=== PATIENT | male | born 1935 | race Hispanic/Latino ===

== ENCOUNTER → 2017-04-26 | Outpatient (CLI) | payer OTHER ==
[~2017-04-26] MED LIST: AMOX500C2 PO; CALC0.253 PO; CHOL100040 PO; CIPR250T6 PO; DOXA4TAB3 PO; DOXA8TAB81 PO; ENOX80DI8 SQ; FERR325T22 PO; FURO40TA5 PO; IRON150C5 PO; LEVO50 PO; LINA145C PO; LISI-613 PO; NIFE30TA10 PO; NIFE90TA45 PO; ONDA4TAB10 PO; PANT40TA25 PO; POTA-9 PO; RENA VITE PO; SILV50CR31 TP; SIMV20TA6 PO; SPIR25TA PO; WARF-57 PO; WARF10TA45 PO
[2017-04-26 10:15] LABS: BASOPHILS % (AUTO) 1.8 % (0.0-5.0); EOSINOPHILS % (AUTO) 2.2 % (0.0-8.0); HEMATOCRIT 39.1 % (42-54); LYMPHOCYTES % (AUTO) 17.9 % (21.0-51.0); MEAN CORPUSCULAR HEMOGLOBIN 30.9 pg (27.0-33.0); MEAN CORPUSCULAR HGB CONC 33.4 g/dL (32.0-36.0); MEAN CORPUSCULAR VOLUME 92.5 fL (79-99); MONOCYTES % (AUTO) 10.4 % (3.0-13.0); NEUTROPHILS % (AUTO) 67.7 % (40.0-77.0); NUCLEATED RED BLOOD CELLS 0.1 % (0.0-0.19); PLATELET COUNT (AUTO) 156 K/uL (130-400); RED BLOOD CELL COUNT(AUTO) 4.23 MIL/uL (4.50-6.20); RED CELL DISTRIBUTION WIDTH 14.8 % (11.0-15.5); WHITE BLOOD COUNT (AUTO) 4.6 K/uL (4.8-10.8)
[2017-04-26 10:27] LABS: INR 1.1 (0.85-1.15); PROTHROMBIN TIME 11.5 SEC (9.6-11.6)
[2017-04-26 10:29] LABS: ALBUMIN 2.6 g/dL (3.5-5.0); BILIRUBIN,TOTAL 1.6 mg/dL (0.2-1.0); CREATININE 1.4 mg/dL (0.5-1.5); POTASSIUM 4.5 mmol/L (3.5-5.1); TOTAL PROTEIN, SERUM 5.4 g/dL (6.0-8.3)
== END ==
LOC: RAH 09:17
PROVIDERS: ATTEND Internal Medicine Gastroenterology
DX: R18.8 Other ascites (principal)
CPT/HCPCS: 36415; 76705; 80053; 85025; 85610

== ENCOUNTER → 2017-05-25 | Outpatient (CLI) | payer OTHER ==
[2017-05-25 09:21] LABS: INR 2.13 (0.85-1.15)
== END | disposition home or self-care (01) ==
LOC: RAH 08:17
PROVIDERS: ATTEND Internal Medicine Gastroenterology
DX: K74.60 Unspecified cirrhosis of liver (principal); R18.8 Other ascites
CPT/HCPCS: 36415; 76700; 82105; 85610

== ENCOUNTER 2017-05-31 23:53 | Observation (INO) | payer OTHER ==
[~2017-05-31] VITALS: Ht 182.9 cm; Wt 89.3 kg
[~2017-05-31 23:53] MED LIST changes: -AMOX500C2 PO; -CIPR250T6 PO; -DOXA8TAB81 PO; -ENOX80DI8 SQ; -IRON150C5 PO; -LEVO50 PO; -LISI-613 PO; -ONDA4TAB10 PO; -SILV50CR31 TP; -SPIR25TA PO; -WARF10TA45 PO
[2017-06-01] MEDS ORDERED: ASPIRIN 325 MG TABLET ONE (00:13)
[2017-06-01 00:17] LABS: BASOPHILS % (AUTO) 1.1 % (0.0-5.0); HEMATOCRIT 35.6 % (42-54); LYMPHOCYTES % (AUTO) 10.3 % (21.0-51.0); MEAN CORPUSCULAR HEMOGLOBIN 30.3 pg (27.0-33.0); MEAN CORPUSCULAR HGB CONC 33.8 g/dL (32.0-36.0); MEAN CORPUSCULAR VOLUME 89.6 fL (79-99); MONOCYTES % (AUTO) 11.3 % (3.0-13.0); NEUTROPHILS % (AUTO) 74.3 % (40.0-77.0); PLATELET COUNT (AUTO) 211 K/uL (130-400); RED BLOOD CELL COUNT(AUTO) 3.98 MIL/uL (4.50-6.20); RED CELL DISTRIBUTION WIDTH 14.1 % (11.0-15.5); WHITE BLOOD COUNT (AUTO) 6.1 K/uL (4.8-10.8)
[2017-06-01 00:21] LABS: INR 2.08 (0.85-1.15); PARTIAL THROMBOPLASTIN TIME 38.4 SEC (26.3-35.5); PROTHROMBIN TIME 21.5 SEC (9.6-11.6)
[2017-06-01 01:16] LABS: CREATINE KINASE MB 2.1 ng/mL (0.5-3.6)
[2017-06-01 01:18] LABS: BILIRUBIN,TOTAL 0.6 mg/dL (0.2-1.0); CREATININE 1.4 mg/dL (0.5-1.5); POTASSIUM 4.5 mmol/L (3.5-5.1)
[2017-06-01 01:19] LABS: ALBUMIN 2.1 g/dL (3.5-5.0); TOTAL PROTEIN, SERUM 5.5 g/dL (6.0-8.3)
[2017-06-01] MEDS ORDERED: FUROSEMIDE 10 MG/ML 2ML VIAL ONE (01:23)
[2017-06-01] MEDS ORDERED: LEVOFLOXACIN 500 MG/D5W 100 ML 100 ML ONE (02:45)
[2017-06-01] MEDS ORDERED: NITROGLYCERIN 1GM/1 INCH PACKET TD ONE ×2 (02:45→10:50)
[2017-06-01] MEDS ORDERED: ENOXAPARIN SODIUM 30 MG/0.3 ML SQ ONE (06:23)
[2017-06-01] MEDS ORDERED: FUROSEMIDE 10 MG/ML 4ML VIAL ONE (13:57)
[2017-06-01 14:51] VITALS: BP 132/64
[2017-06-01] MEDS: NITROGLYCERIN 1GM/1 INCH PACKET TD SCH ×2 (15:00→23:00)
[2017-06-01] MEDS: FUROSEMIDE 10 MG/ML 4ML VIAL IVP SCH (15:00)
[2017-06-01] MEDS ORDERED: AMOX500C2 PO (15:01)
[2017-06-01] MEDS ORDERED: LEVO50 PO (15:01)
[2017-06-01] MEDS ORDERED: WARF10TA45 PO (15:01)
[2017-06-01] MEDS ORDERED: NIFE90TA45 PO (15:01)
[2017-06-01] MEDS ORDERED: SPIR25TA PO (15:01)
[2017-06-01] MEDS ORDERED: LISI-613 PO (15:01)
[2017-06-01] MEDS ORDERED: WARF-57 PO (15:01)
[2017-06-01] MEDS ORDERED: SILV50CR31 TP (15:01)
[2017-06-01 16:17] LABS: CREATINE KINASE MB 2.2 ng/mL (0.5-3.6); CREATINE KINASE, TOTAL 62 U/L (21-232); MYOGLOBIN 136 ng/mL (10-92); TROPONIN I < 0.04 ng/mL (0.00-0.06)
[2017-06-01 16:21] VITALS: BP 131/67
[2017-06-01 19:40] VITALS: BP 136/68
[2017-06-01 22:05] LABS: CREATINE KINASE MB 2.9 ng/mL (0.5-3.6); CREATINE KINASE, TOTAL 63 U/L (21-232); MYOGLOBIN 148 ng/mL (10-92); TROPONIN I < 0.04 ng/mL (0.00-0.06)
[2017-06-01 23:28] VITALS: BP 130/72
[2017-06-02 03:49] VITALS: BP 124/64
[2017-06-02 04:48] LABS: HEMATOCRIT 34.2 % (42-54); MEAN CORPUSCULAR HEMOGLOBIN 30.9 pg (27.0-33.0); MEAN CORPUSCULAR HGB CONC 34.7 g/dL (32.0-36.0); MEAN CORPUSCULAR VOLUME 89.1 fL (79-99); NUCLEATED RED BLOOD CELLS 0.1 % (0.0-0.19); PLATELET COUNT (AUTO) 203 K/uL (130-400); RED BLOOD CELL COUNT(AUTO) 3.84 MIL/uL (4.50-6.20); RED CELL DISTRIBUTION WIDTH 14.3 % (11.0-15.5); WHITE BLOOD COUNT (AUTO) 5.5 K/uL (4.8-10.8)
[2017-06-02 05:00] LABS: CREATININE 1.6 mg/dL (0.5-1.5); POTASSIUM 4.7 mmol/L (3.5-5.1)
[2017-06-02 05:11] LABS: B-TYPE NATRIURETIC PEPTIDE 2340 pg/mL (0-100)
[2017-06-02] MEDS: FUROSEMIDE 10 MG/ML 4ML VIAL IVP SCH (05:35)
[2017-06-02] MEDS: NITROGLYCERIN 1GM/1 INCH PACKET TD SCH (06:34)
[2017-06-02 07:42] VITALS: BP 129/66
[2017-06-02] MEDS ORDERED: ASPIRIN 325 MG TABLET PO SCH (09:00)
[2017-06-02] MEDS ORDERED: ENOXAPARIN SODIUM 30 MG/0.3 ML SQ SCH (09:00)
[2017-06-02 11:30] VITALS: BP 126/56
[2017-06-02] MEDS ORDERED: LEVOFLOXACIN 500 MG/D5W 100 ML 100 ML IV SCH (21:00)
[2017-06-03] MEDS ORDERED: LEVOTHYROXINE 50 MCG TABLET PO SCH (07:30)
[2017-06-03] MEDS ORDERED: FUROSEMIDE 40 MG TABLET PO SCH (09:00)
[2017-06-03] MEDS ORDERED: SPIRONOLACTONE 25 MG TAB PO SCH (09:00)
[2017-06-03] MEDS ORDERED: LINZESS 145 MCG PO SCH (09:00)
[2017-06-03] MEDS ORDERED: FOLIC ACID/VITAMIN B COMP W-C 1 MG CAPSULE PO SCH (09:00)
[2017-06-03] MEDS ORDERED: DOXAZOSIN MESYLATE 2 MG TABLET PO SCH (09:00)
[2017-06-03] MEDS ORDERED: LISINOPRIL 20 MG TABLET PO SCH (09:00)
[2017-06-03] MEDS ORDERED: NIFEDIPINE ER 30 MG TAB PO SCH (09:00)
[2017-06-03] MEDS ORDERED: PANTOPRAZOLE SODIUM 40 MG TABLET.DR PO SCH (09:00)
== END 2017-06-02 14:20 | disposition home or self-care (01) ==
LOC: EDH 23:53 → EDHIP 06-01 02:00 → 2DH 06-01 14:31
PROVIDERS: ADMIT Family Medicine; ATTEND Family Medicine
DX: R07.89 Other chest pain (principal); I48.2 Chronic atrial fibrillation; D68.69 Other thrombophilia; R91.8 Other nonspecific abnormal finding of lung field; K74.60 Unspecified cirrhosis of liver; I25.10 Atherosclerotic heart disease of native coronary artery without angina pectoris; E11.9 Type 2 diabetes mellitus without complications; J18.9 Pneumonia, unspecified organism; I11.0 Hypertensive heart disease with heart failure; I50.9 Heart failure, unspecified; J44.0 Chronic obstructive pulmonary disease with (acute) lower respiratory infection; Z82.49 Family history of ischemic heart disease and other diseases of the circulatory system; Z95.1 Presence of aortocoronary bypass graft; Z90.49 Acquired absence of other specified parts of digestive tract; Z77.090 Contact with and (suspected) exposure to asbestos; Z79.01 Long term (current) use of anticoagulants
CPT/HCPCS: 36415 ×2; 71045; 71250; 78580; 80048; 80053; 82550 ×3; 82553 ×3; 83874 ×3; 83880 ×2; 84484 ×5; 85025; 85027; 85378; 85610; 85730; 93005 ×2; 96374; 99285; A9540 ×2; G0378 ×36; J1650; J1940 ×3; J1956

== ENCOUNTER 2017-06-04 19:34 | Emergency (ER) | payer OTHER ==
[~2017-06-04 19:34] MED LIST changes: +LEVO50 PO; +LISI-613 PO; +SILV50CR31 TP; +SPIR25TA PO; +WARF10TA45 PO
== END 2017-06-04 21:10 | disposition home or self-care (01) ==
LOC: EDH 19:34
DX: Z46.6 Encounter for fitting and adjustment of urinary device (principal)
CPT/HCPCS: 99281

== ENCOUNTER 2017-06-05 23:15 | Observation (INO) | payer OTHER ==
[~2017-06-05] VITALS: Ht 185.4 cm; Wt 92.9 kg
[2017-06-06 00:17] LABS: BASOPHILS % (AUTO) 0.9 % (0.0-5.0); EOSINOPHILS % (AUTO) 1.8 % (0.0-8.0); HEMATOCRIT 32.7 % (42-54); MEAN CORPUSCULAR HEMOGLOBIN 30.8 pg (27.0-33.0); MEAN CORPUSCULAR HGB CONC 34.8 g/dL (32.0-36.0); MEAN CORPUSCULAR VOLUME 88.4 fL (79-99); MONOCYTES % (AUTO) 10.1 % (3.0-13.0); NEUTROPHILS % (AUTO) 80.2 % (40.0-77.0); PLATELET COUNT (AUTO) 200 K/uL (130-400); RED CELL DISTRIBUTION WIDTH 14.1 % (11.0-15.5); WHITE BLOOD COUNT (AUTO) 7.6 K/uL (4.8-10.8)
[2017-06-06 00:27] LABS: CARBON DIOXIDE 26 mmol/L (21-32); CHLORIDE 95 mmol/L (101-111); CREATININE 1.5 mg/dL (0.5-1.5); GLOMERULAR FILTR. RATE CALC 48 mL/min (>60); GLUCOSE,RANDOM 117 mg/dL (70-105); POTASSIUM 4.1 mmol/L (3.5-5.1); SODIUM SERUM 129 mmol/L (136-145); UREA NITROGEN, BLOOD 34 mg/dL (7-18)
[2017-06-06 00:31] LABS: PARTIAL THROMBOPLASTIN TIME 45.3 SEC (26.3-35.5)
[2017-06-06 00:34] LABS: INR 5.11 (0.85-1.15)
[2017-06-06 00:42] LABS: ALANINE AMINOTRANSFERASE 16 U/L (12-78); ALBUMIN 2.1 g/dL (3.5-5.0); AMMONIA 11 umol/L (11-32); ASPARTATE AMINOTRANSFERASE 17 U/L (10-37); BILIRUBIN,TOTAL 0.6 mg/dL (0.2-1.0); CREATINE KINASE MB 2.6 ng/mL (0.5-3.6); CREATINE KINASE, TOTAL 33 U/L (21-232); MYOGLOBIN 79 ng/mL (10-92); TOTAL PROTEIN, SERUM 5.3 g/dL (6.0-8.3); TROPONIN I < 0.04 ng/mL (0.00-0.06)
[2017-06-06 00:52] LABS: APPEARANCE,URINE Clear (CLEAR); BILIRUBIN,URINE Negative (NEGATIVE); COLOR,URINE Yellow (YELLOW); GLUCOSE, URINE (UA) Negative (NEGATIVE); KETONES,URINE Negative (NEGATIVE); LEUKOCYTE ESTERASE ,URINE Moderate (NEGATIVE); NITRATE,URINE Negative (NEGATIVE); OCCULT BLOOD,URINE Large (NEGATIVE); PROTEIN,URINE Negative (NEGATIVE)
[2017-06-06 01:05] LABS: BACTERIA,URINE Few /HPF (None Seen); MUCUS,URINE Few LPF (None Seen); RBC,URINE 26-50 /HPF (0-1); SQUAMOUS EPITHELIAL CELL,UR Rare /LPF (0-2)
[2017-06-06] MEDS ORDERED: CEFTRIAXONE SODIUM 2 GM VIAL ONE (01:21)
[2017-06-06] MEDS ORDERED: SODIUM CHLORIDE 0.9% 50 ML IV ONE (01:23)
[2017-06-06] MEDS ORDERED: SODIUM CHLORIDE 0.9% 1000ML 1,000 ML IV SCH (04:06)
[2017-06-06] MEDS ORDERED: HYDRALAZINE HCL 20 MG/ML VIAL IV PRN (04:15)
[2017-06-06] MEDS ORDERED: POTASSIUM CHLORIDE 20 MEQ ERTAB PO PRN (04:15)
[2017-06-06] MEDS ORDERED: IPRATROPIUM/ALBUTEROL SULFATE 3 ML SOLUTION IH PRN (04:15)
[2017-06-06] MEDS: LEVOFLOXACIN 500 MG/D5W 100 ML 100 ML IV SCH (04:15)
[2017-06-06] MEDS ORDERED: DEXTROSE 50%-WATER 50 ML DISP.SYRIN IV PRN (04:15)
[2017-06-06] MEDS ORDERED: POTASSIUM CHLORIDE 20MEQ/100ML 100 ML IV PRN (04:15)
[2017-06-06] MEDS ORDERED: LACTULOSE 20 GM/30 ML UDCUP PO PRN (04:15)
[2017-06-06] MEDS ORDERED: POTASSIUM CHLORIDE 10% ELIXIR 20 MEQ/15 ML UDCUP PO PRN (04:15)
[2017-06-06] MEDS ORDERED: LIDOCAINE HCL-MPF 1% 2ML VIAL IVP PRN (04:15)
[2017-06-06] MEDS ORDERED: ONDANSETRON HCL 4 MG/2 ML VIAL IVP PRN (04:15)
[2017-06-06] MEDS ORDERED: GLUCAGON 1MG KIT 1 MG ML IM PRN (04:15)
[2017-06-06] MEDS ORDERED: SODIUM CHLORIDE 0.9% 1000ML 1,000 ML IV ONE (04:25)
[2017-06-06] MEDS ORDERED: LEVOFLOXACIN 500 MG/D5W 100 ML 100 ML ONE (04:26)
[2017-06-06 04:55] LABS: HEMATOCRIT 32.5 % (42-54); MEAN CORPUSCULAR HEMOGLOBIN 31.2 pg (27.0-33.0); MEAN CORPUSCULAR HGB CONC 35.2 g/dL (32.0-36.0); MEAN CORPUSCULAR VOLUME 88.6 fL (79-99); PLATELET COUNT (AUTO) 184 K/uL (130-400); RED BLOOD CELL COUNT(AUTO) 3.67 MIL/uL (4.50-6.20); RED CELL DISTRIBUTION WIDTH 14.2 % (11.0-15.5)
[2017-06-06 05:08] LABS: CREATININE 1.4 mg/dL (0.5-1.5); POTASSIUM 3.9 mmol/L (3.5-5.1)
[2017-06-06 08:04] LABS: PARTIAL THROMBOPLASTIN TIME 46.5 SEC (26.3-35.5)
[2017-06-06 08:17] LABS: PROTHROMBIN TIME 52.4 SEC (9.6-11.6)
[2017-06-06 08:18] LABS: INR 5.15 (0.85-1.15)
[2017-06-06] MEDS ORDERED: FAMOTIDINE/PF 20 MG/2 ML VIAL IV ONE (10:14)
[2017-06-06 16:00] VITALS: BP 123/67
[2017-06-06 20:00] VITALS: BP 121/56
[2017-06-06] MEDS: FAMOTIDINE 20MG TAB 20 MG TAB PO SCH (20:04)
[2017-06-06] MEDS: INSULIN HUMULIN R 100 UNIT/ML 3ML SQ SCH (21:00)
[2017-06-06] MEDS ORDERED: NIFEDIPINE 90 MG PO SCH (21:00)
[2017-06-07 00:12] VITALS: BP 137/68
[2017-06-07] MEDS: LEVOFLOXACIN 500 MG/D5W 100 ML 100 ML IV SCH (04:12)
[2017-06-07 04:20] VITALS: BP 135/57
[2017-06-07] MEDS: ACETAMINOPHEN 325 MG TAB PO PRN ×2 (04:21→12:19)
[2017-06-07 05:58] LABS: INR 4.08 (0.85-1.15); PROTHROMBIN TIME 41.7 SEC (9.6-11.6)
[2017-06-07] MEDS: INSULIN HUMULIN R 100 UNIT/ML 3ML SQ SCH ×4 (06:32→21:00)
[2017-06-07] MEDS: LEVOTHYROXINE 50 MCG TABLET PO SCH (06:34)
[2017-06-07 08:00] VITALS: BP 137/57
[2017-06-07] MEDS: Cholecalciferol (Vitamin D3) 1,000 UNIT PO SCH (09:00)
[2017-06-07] MEDS ORDERED: NIFEDIPINE ER 30 MG TAB PO SCH (09:00)
[2017-06-07] MEDS: Linaclotide (Linzess) 145 MCG PO SCH (09:00)
[2017-06-07] MEDS: FUROSEMIDE 40 MG TABLET PO SCH (10:31)
[2017-06-07] MEDS: PANTOPRAZOLE SODIUM 40 MG TABLET.DR PO SCH (10:33)
[2017-06-07] MEDS: FERROUS SULFATE 325 MG TABLET.DR PO SCH ×3 (10:33→21:54)
[2017-06-07] MEDS: SPIRONOLACTONE 25 MG TAB PO SCH (10:34)
[2017-06-07] MEDS: DOXAZOSIN MESYLATE 2 MG TABLET PO SCH (10:34)
[2017-06-07] MEDS: NIFEDIPINE ER 30 MG TAB PO SCH (10:34)
[2017-06-07] MEDS: FOLIC ACID/VITAMIN B COMP W-C 1 MG CAPSULE PO SCH (10:37)
[2017-06-07] MEDS: FAMOTIDINE 20MG TAB 20 MG TAB PO SCH ×2 (10:37→21:54)
[2017-06-07] MEDS: LISINOPRIL 20 MG TABLET PO SCH (10:37)
[2017-06-07 12:00] VITALS: BP 147/87
[2017-06-07 16:00] VITALS: BP 129/58
[2017-06-07] MEDS ORDERED: MAG HYDROX/AL HYDROX/SIMETH ES 30 ML SUSP UDCUP PO PRN (18:00)
[2017-06-07 19:25] VITALS: BP 116/50
[2017-06-08 00:15] VITALS: BP 116/50
[2017-06-08 03:05] VITALS: BP 129/62
[2017-06-08] MEDS: LEVOFLOXACIN 500 MG/D5W 100 ML 100 ML IV SCH (03:59)
[2017-06-08] MEDS: INSULIN HUMULIN R 100 UNIT/ML 3ML SQ SCH ×3 (06:04→16:30)
[2017-06-08] MEDS: LEVOTHYROXINE 50 MCG TABLET PO SCH (06:51)
[2017-06-08 08:00] VITALS: BP 130/56
[2017-06-08] MEDS: SPIRONOLACTONE 25 MG TAB PO SCH (08:47)
[2017-06-08] MEDS: FAMOTIDINE 20MG TAB 20 MG TAB PO SCH (08:48)
[2017-06-08] MEDS: DOXAZOSIN MESYLATE 2 MG TABLET PO SCH (08:48)
[2017-06-08] MEDS: FOLIC ACID/VITAMIN B COMP W-C 1 MG CAPSULE PO SCH (08:48)
[2017-06-08] MEDS: FUROSEMIDE 40 MG TABLET PO SCH (08:48)
[2017-06-08] MEDS: Cholecalciferol (Vitamin D3) 1,000 UNIT PO SCH (08:49)
[2017-06-08] MEDS: NIFEDIPINE ER 30 MG TAB PO SCH (08:49)
[2017-06-08] MEDS: FERROUS SULFATE 325 MG TABLET.DR PO SCH ×2 (08:49→14:21)
[2017-06-08] MEDS: PANTOPRAZOLE SODIUM 40 MG TABLET.DR PO SCH (08:49)
[2017-06-08] MEDS: LISINOPRIL 20 MG TABLET PO SCH (08:49)
[2017-06-08] MEDS: Linaclotide (Linzess) 145 MCG PO SCH (08:50)
[2017-06-08] MEDS ORDERED: CIPR250T6 PO (11:20)
[2017-06-08 12:00] VITALS: BP 111/54
== END 2017-06-08 18:46 | disposition home or self-care (01) ==
LOC: EDH 23:15 → EDHIP 06-06 03:03 → 3AH 06-06 17:56
PROVIDERS: ADMIT Family Medicine; ATTEND Family Medicine
DX: R41.82 Altered mental status, unspecified (principal); N39.0 Urinary tract infection, site not specified; E86.0 Dehydration; E11.9 Type 2 diabetes mellitus without complications; E78.5 Hyperlipidemia, unspecified; E87.1 Hypo-osmolality and hyponatremia; I11.0 Hypertensive heart disease with heart failure; I50.9 Heart failure, unspecified; I25.10 Atherosclerotic heart disease of native coronary artery without angina pectoris; R79.1 Abnormal coagulation profile; F03.90 Unspecified dementia, unspecified severity, without behavioral disturbance, psychotic disturbance, mood disturbance, and anxiety; I48.2 Chronic atrial fibrillation; J11.00 Influenza due to unidentified influenza virus with unspecified type of pneumonia; N40.1 Benign prostatic hyperplasia with lower urinary tract symptoms; K74.60 Unspecified cirrhosis of liver; Z79.01 Long term (current) use of anticoagulants; Z95.1 Presence of aortocoronary bypass graft
CPT/HCPCS: 36415 ×3; 70450; 71045; 74176; 80048; 80053; 81001; 82140; 82550; 82553; 82948 ×8; 83605; 83874; 84484; 85025; 85027; 85610 ×3; 85730 ×2; 87040 ×2; 87088; 87804 ×2; 93005; 94664; 96365; 96366; 96375; 99285; A4344; G0378 ×64; J0696; J1956 ×3; J3490; J7030

== ENCOUNTER 2017-06-15 10:40 | Inpatient (IN) | payer OTHER ==
[~2017-06-15] VITALS: Ht 182.9 cm; Wt 99.9 kg
[~2017-06-15 10:40] MED LIST changes: +CIPR250T6 PO; -WARF-57 PO; -WARF10TA45 PO
[2017-06-15 12:05] LABS: BASOPHILS % (AUTO) 0.5 % (0.0-5.0); HEMATOCRIT 34.9 % (42-54); LYMPHOCYTES % (AUTO) 5.1 % (21.0-51.0); MEAN CORPUSCULAR VOLUME 88.5 fL (79-99); MONOCYTES % (AUTO) 10.5 % (3.0-13.0); NEUTROPHILS % (AUTO) 82.9 % (40.0-77.0); PLATELET COUNT (AUTO) 216 K/uL (130-400); RED BLOOD CELL COUNT(AUTO) 3.95 MIL/uL (4.50-6.20); RED CELL DISTRIBUTION WIDTH 14.7 % (11.0-15.5); WHITE BLOOD COUNT (AUTO) 10.1 K/uL (4.8-10.8)
[2017-06-15 12:18] LABS: INR 1.07 (0.85-1.15); PARTIAL THROMBOPLASTIN TIME 30.6 SEC (26.3-35.5); PROTHROMBIN TIME 11.2 SEC (9.6-11.6)
[2017-06-15 12:30] LABS: ALBUMIN 1.9 g/dL (3.5-5.0); CREATINE KINASE MB 2.8 ng/mL (0.5-3.6); CREATININE 1.9 mg/dL (0.5-1.5); POTASSIUM 5.3 mmol/L (3.5-5.1); TOTAL PROTEIN, SERUM 5.5 g/dL (6.0-8.3)
[2017-06-15] MEDS ORDERED: LACTATED RINGERS 1000ML 1,000 ML IV ONE (14:05)
[2017-06-15] MEDS ORDERED: SODIUM CHLORIDE 0.9% 1000ML 1,000 ML IV ONE ×2 (14:05→15:39)
[2017-06-15 15:52] LABS: APPEARANCE,URINE Cloudy (CLEAR); BILIRUBIN,URINE Negative (NEGATIVE); COLOR,URINE Orange (YELLOW); GLUCOSE, URINE (UA) Negative (NEGATIVE); KETONES,URINE Negative (NEGATIVE); LEUKOCYTE ESTERASE ,URINE Moderate (NEGATIVE); NITRATE,URINE Negative (NEGATIVE); OCCULT BLOOD,URINE Large (NEGATIVE); PROTEIN,URINE POS 1+ (NEGATIVE)
[2017-06-15 15:59] LABS: AMPHET/METH SCREEN,URINE NEGATIVE (NEGATIVE); BARBITURATE SCREEN, URINE NEGATIVE (NEGATIVE); BENZODIAZEPINES SCREEN,URINE NEGATIVE (NEGATIVE); CANNABINOID SCREEN,URINE NEGATIVE (NEGATIVE); COCAINE SCREEN,URINE NEGATIVE (NEGATIVE); OPIATE SCREEN,URINE NEGATIVE (NEGATIVE); PHENCYCLIDINE SCREEN,URINE NEGATIVE (NEGATIVE)
[2017-06-15 16:45] LABS: RBC,URINE 51-100 /HPF (0-1)
[2017-06-15 16:46] LABS: AMORPHOUS SEDIMENT,UR Few /LPF (None Seen); BACTERIA,URINE Few /HPF (None Seen); SQUAMOUS EPITHELIAL CELL,UR None Seen /HPF (0-2)
[2017-06-15 18:12] VITALS: BP 117/50
[2017-06-15] MEDS ORDERED: SODIUM CHLORIDE 0.9% 1000ML 1,000 ML IV SCH (19:00)
[2017-06-15] MEDS ORDERED: ACETAMINOPHEN 325 MG TAB PO PRN (19:00)
[2017-06-15] MEDS ORDERED: GLUCAGON 1MG KIT 1 MG ML IM PRN (19:00)
[2017-06-15] MEDS ORDERED: DEXTROSE 50%-WATER 50 ML DISP.SYRIN IV PRN (19:00)
[2017-06-15 19:40] VITALS: BP 105/49
[2017-06-15] MEDS ORDERED: CEFTRIAXONE 1GM/D5W 50ML 50 ML IV SCH (20:00)
[2017-06-15] MEDS: CEFTRIAXONE SODIUM 1 GM IVP SCH (20:14)
[2017-06-15] MEDS: INSULIN HUMULIN R 100 UNIT/ML 3ML SQ SCH (21:00)
[2017-06-15 23:22] VITALS: BP 111/51
[2017-06-16] MEDS ORDERED: ONDA4TAB10 PO (00:19)
[2017-06-16] MEDS ORDERED: WARF-57 PO (00:19)
[2017-06-16] MEDS ORDERED: DOXA8TAB81 PO (00:19)
[2017-06-16 03:40] VITALS: BP 114/53
[2017-06-16 06:01] LABS: HEMATOCRIT 30.1 % (42-54); MEAN CORPUSCULAR HGB CONC 36.1 g/dL (32.0-36.0); MEAN CORPUSCULAR VOLUME 88.7 fL (79-99); PLATELET COUNT (AUTO) 190 K/uL (130-400); RED BLOOD CELL COUNT(AUTO) 3.39 MIL/uL (4.50-6.20); RED CELL DISTRIBUTION WIDTH 15.1 % (11.0-15.5); WHITE BLOOD COUNT (AUTO) 9.2 K/uL (4.8-10.8)
[2017-06-16 06:10] LABS: INR 1.11 (0.85-1.15); PROTHROMBIN TIME 11.6 SEC (9.6-11.6)
[2017-06-16] MEDS: INSULIN HUMULIN R 100 UNIT/ML 3ML SQ SCH ×4 (06:13→21:00)
[2017-06-16 06:27] LABS: ALBUMIN 1.6 g/dL (3.5-5.0); BILIRUBIN,TOTAL 0.7 mg/dL (0.2-1.0); CREATININE 1.7 mg/dL (0.5-1.5); MAGNESIUM 1.7 mg/dL (1.80-2.40); POTASSIUM 4.7 mmol/L (3.5-5.1); TOTAL PROTEIN, SERUM 4.8 g/dL (6.0-8.3)
[2017-06-16 07:45] VITALS: BP 123/57
[2017-06-16 11:00] VITALS: BP 109/51
[2017-06-16] MEDS ORDERED: ACETAMINOPHEN 325 MG TAB PO PRN (12:30)
[2017-06-16] MEDS ORDERED: HYDRALAZINE HCL 20 MG/ML VIAL IV PRN (12:30)
[2017-06-16] MEDS ORDERED: NITROGLYCERIN 0.4 MG SL TAB SL PRN (12:30)
[2017-06-16] MEDS ORDERED: GUAIFENESIN-DM 200/20 MG 10 ML PO PRN (12:30)
[2017-06-16] MEDS ORDERED: ONDANSETRON HCL 4 MG/2 ML VIAL IV PRN (12:30)
[2017-06-16] MEDS ORDERED: LACTULOSE 20 GM/30 ML UDCUP PO PRN (12:30)
[2017-06-16] MEDS ORDERED: MAG HYDROX/AL HYDROX/SIMETH ES 30 ML SUSP UDCUP PO PRN (12:30)
[2017-06-16] MEDS ORDERED: MAGNESIUM 2GM PREMIX 50ML 50 ML IV SCH (12:45)
[2017-06-16 16:00] VITALS: BP 111/38
[2017-06-16] MEDS: WARFARIN SODIUM 5 MG TAB PO SCH (17:13)
[2017-06-16 20:00] VITALS: BP 113/47
[2017-06-16] MEDS: CEFTRIAXONE SODIUM 1 GM IVP SCH (21:13)
[2017-06-16] MEDS: LACTULOSE 20 GM/30 ML UDCUP PO SCH (21:13)
[2017-06-16 23:26] VITALS: BP 111/53
[2017-06-16] MEDS: ACETAMINOPHEN 325 MG TAB PO PRN (23:39)
[2017-06-16] MEDS: ONDANSETRON HCL MDV 20ML 2 MG/ML VIAL IVP PRN (23:40)
[2017-06-17 04:15] VITALS: BP 104/44
[2017-06-17 06:21] LABS: HEMATOCRIT 29.6 % (42-54); MEAN CORPUSCULAR HEMOGLOBIN 31.1 pg (27.0-33.0); MEAN CORPUSCULAR HGB CONC 35.3 g/dL (32.0-36.0); PLATELET COUNT (AUTO) 194 K/uL (130-400); RED BLOOD CELL COUNT(AUTO) 3.37 MIL/uL (4.50-6.20); RED CELL DISTRIBUTION WIDTH 14.7 % (11.0-15.5)
[2017-06-17 06:31] LABS: INR 1.13 (0.85-1.15); PARTIAL THROMBOPLASTIN TIME 31.8 SEC (26.3-35.5); PROTHROMBIN TIME 11.8 SEC (9.6-11.6)
[2017-06-17 06:39] LABS: CREATININE 1.6 mg/dL (0.5-1.5); MAGNESIUM 1.9 mg/dL (1.80-2.40); POTASSIUM 4.6 mmol/L (3.5-5.1); THYROID STIMULATING HORMONE 5.2 uIU/mL (0.36-3.74); URIC ACID 8.8 mg/dL (2.6-7.2)
[2017-06-17 06:42] LABS: % IRON SATURATION 29.4 % (30-44)
[2017-06-17] MEDS: INSULIN HUMULIN R 100 UNIT/ML 3ML SQ SCH ×4 (06:58→21:00)
[2017-06-17 07:00] VITALS: BP 120/55
[2017-06-17] MEDS: LEVOTHYROXINE 50 MCG TABLET PO SCH (07:03)
[2017-06-17] MEDS ORDERED: DOXAZOSIN MESYLATE 2 MG TABLET PO SCH (09:00)
[2017-06-17] MEDS ORDERED: WARFARIN SODIUM 5 MG TAB PO SCH (09:00)
[2017-06-17] MEDS: LINZESS 145 MCG PO SCH (09:00)
[2017-06-17] MEDS ORDERED: LISINOPRIL 20 MG TABLET PO SCH (09:00)
[2017-06-17] MEDS ORDERED: NIFEDIPINE ER 30 MG TAB PO SCH (09:00)
[2017-06-17] MEDS ORDERED: SPIRONOLACTONE 25 MG TAB PO SCH (09:00)
[2017-06-17] MEDS: THIAMINE HCL 100 MG TABLET PO SCH (09:29)
[2017-06-17] MEDS: FOLIC ACID/VITAMIN B COMP W-C 1 MG CAPSULE PO SCH (09:29)
[2017-06-17] MEDS: LACTULOSE 20 GM/30 ML UDCUP PO SCH ×3 (09:29→21:23)
[2017-06-17 11:00] VITALS: BP 104/44
[2017-06-17] MEDS ORDERED: COMPOUND IV MISC 1 EACH IVSOLN MISC PRN (13:00)
[2017-06-17] MEDS: SIMETHICONE 80 MG TAB.CHEW PO SCH ×3 (13:17→21:23)
[2017-06-17 16:00] VITALS: BP 105/48
[2017-06-17] MEDS: WARFARIN SODIUM 5 MG TAB PO SCH (16:52)
[2017-06-17 20:50] VITALS: BP 128/56
[2017-06-17] MEDS ORDERED: ZOLPIDEM TARTRATE 5 MG TAB PO ONE (21:15)
[2017-06-17] MEDS: CEFTRIAXONE SODIUM 1 GM IVP SCH (21:23)
[2017-06-17] MEDS ORDERED: ZOLPIDEM TARTRATE 5 MG TAB ONE (21:53)
[2017-06-17 23:15] VITALS: BP 126/54
[2017-06-18 03:30] VITALS: BP 124/51
[2017-06-18 05:31] LABS: HEMATOCRIT 31.2 % (42-54); MEAN CORPUSCULAR HEMOGLOBIN 31.4 pg (27.0-33.0); MEAN CORPUSCULAR HGB CONC 35.7 g/dL (32.0-36.0); MEAN CORPUSCULAR VOLUME 87.9 fL (79-99); PLATELET COUNT (AUTO) 208 K/uL (130-400); RED BLOOD CELL COUNT(AUTO) 3.55 MIL/uL (4.50-6.20); RED CELL DISTRIBUTION WIDTH 14.9 % (11.0-15.5); WHITE BLOOD COUNT (AUTO) 15.6 K/uL (4.8-10.8)
[2017-06-18 05:41] LABS: CREATININE 1.6 mg/dL (0.5-1.5); POTASSIUM 4.2 mmol/L (3.5-5.1)
[2017-06-18 05:42] LABS: INR 1.19 (0.85-1.15); PARTIAL THROMBOPLASTIN TIME 31.4 SEC (26.3-35.5); PROTHROMBIN TIME 12.5 SEC (9.6-11.6)
[2017-06-18] MEDS: INSULIN HUMULIN R 100 UNIT/ML 3ML SQ SCH ×4 (06:29→21:00)
[2017-06-18] MEDS: LEVOTHYROXINE 50 MCG TABLET PO SCH (07:00)
[2017-06-18 08:05] VITALS: BP 127/56
[2017-06-18] MEDS: LACTULOSE 20 GM/30 ML UDCUP PO SCH (09:00)
[2017-06-18] MEDS: LINZESS 145 MCG PO SCH (09:00)
[2017-06-18] MEDS: CALCITRIOL 0.25 MCG CAPSULE PO SCH (10:33)
[2017-06-18] MEDS: FOLIC ACID/VITAMIN B COMP W-C 1 MG CAPSULE PO SCH (10:33)
[2017-06-18] MEDS: SIMETHICONE 80 MG TAB.CHEW PO SCH ×4 (10:33→20:39)
[2017-06-18] MEDS: THIAMINE HCL 100 MG TABLET PO SCH (10:33)
[2017-06-18] MEDS: IRON SUCROSE COMPLEX 100 MG in SODIUM CHLORIDE 0.9% 50 ML IV SCH (10:34)
[2017-06-18 13:25] VITALS: BP 155/71
[2017-06-18] MEDS: ONDANSETRON HCL MDV 20ML 2 MG/ML VIAL IVP PRN (15:00)
[2017-06-18 16:00] VITALS: BP 138/64
[2017-06-18] MEDS: WARFARIN SODIUM 5 MG TAB PO SCH (17:43)
[2017-06-18 19:18] VITALS: BP 141/57
[2017-06-18] MEDS: CEFTRIAXONE SODIUM 1 GM IVP SCH (20:39)
[2017-06-19 00:45] VITALS: BP 154/71
[2017-06-19 04:27] VITALS: BP 151/61
[2017-06-19 05:50] LABS: HEMATOCRIT 33.6 % (42-54); MEAN CORPUSCULAR HEMOGLOBIN 30.1 pg (27.0-33.0); MEAN CORPUSCULAR HGB CONC 34.4 g/dL (32.0-36.0); MEAN CORPUSCULAR VOLUME 87.5 fL (79-99); NUCLEATED RED BLOOD CELLS 0.1 % (0.0-0.19); PLATELET COUNT (AUTO) 263 K/uL (130-400); RED BLOOD CELL COUNT(AUTO) 3.84 MIL/uL (4.50-6.20); RED CELL DISTRIBUTION WIDTH 14.9 % (11.0-15.5); WHITE BLOOD COUNT (AUTO) 23.4 K/uL (4.8-10.8)
[2017-06-19 05:53] LABS: CREATININE 1.5 mg/dL (0.5-1.5); POTASSIUM 4.4 mmol/L (3.5-5.1)
[2017-06-19 06:01] LABS: INR 1.35 (0.85-1.15); PARTIAL THROMBOPLASTIN TIME 34.7 SEC (26.3-35.5); PROTHROMBIN TIME 14.1 SEC (9.6-11.6)
[2017-06-19] MEDS: LEVOTHYROXINE 50 MCG TABLET PO SCH ×2 (06:08→06:09)
[2017-06-19] MEDS: INSULIN HUMULIN R 100 UNIT/ML 3ML SQ SCH ×4 (06:39→21:00)
[2017-06-19 07:10] LABS: BAND NEUTROPHILS % (MANUAL) 1 % (0-2); LYMPHOCYTES % (MANUAL) 3 % (22-44); MONOCYTES % (MANUAL) 5 % (2-9); SEGMENTED NEUTROPHILS % 91 % (40-70)
[2017-06-19 07:12] LABS: PLATELET MORPHOLOGY COMMENT ADEQUATE
[2017-06-19 07:14] LABS: MAN.DIFF COMMENT-IMPRESSION MANUAL DIFFERENTIAL
[2017-06-19 08:00] VITALS: BP 126/56
[2017-06-19] MEDS: LINZESS 145 MCG PO SCH (09:00)
[2017-06-19] MEDS: FOLIC ACID/VITAMIN B COMP W-C 1 MG CAPSULE PO SCH (09:33)
[2017-06-19] MEDS: SIMETHICONE 80 MG TAB.CHEW PO SCH ×4 (09:33→21:15)
[2017-06-19] MEDS: LACTULOSE 20 GM/30 ML UDCUP PO SCH (09:33)
[2017-06-19] MEDS: THIAMINE HCL 100 MG TABLET PO SCH (09:33)
[2017-06-19] MEDS: IRON SUCROSE COMPLEX 100 MG in SODIUM CHLORIDE 0.9% 50 ML IV SCH (09:33)
[2017-06-19 12:13] VITALS: BP 147/63
[2017-06-19 16:00] VITALS: BP 187/94
[2017-06-19] MEDS: WARFARIN SODIUM 5 MG TAB PO SCH (17:56)
[2017-06-19] MEDS: ACETAMINOPHEN 325 MG TAB PO PRN (18:03)
[2017-06-19 20:00] VITALS: BP 119/48
[2017-06-19] MEDS: CEFTRIAXONE SODIUM 1 GM IVP SCH (21:13)
[2017-06-20] VITALS: BP_SYST 113; BP_SYST 141; BP_DIAS 47; BP_DIAS 50
[2017-06-20 04:00] VITALS: BP 142/65
[2017-06-20 05:30] LABS: MEAN CORPUSCULAR HGB CONC 36.6 g/dL (32.0-36.0); MEAN CORPUSCULAR VOLUME 87.4 fL (79-99); PLATELET COUNT (AUTO) 255 K/uL (130-400); RED BLOOD CELL COUNT(AUTO) 3.55 MIL/uL (4.50-6.20); RED CELL DISTRIBUTION WIDTH 14.8 % (11.0-15.5)
[2017-06-20 05:43] LABS: CREATININE 1.5 mg/dL (0.5-1.5); POTASSIUM 4.5 mmol/L (3.5-5.1)
[2017-06-20] MEDS: INSULIN HUMULIN R 100 UNIT/ML 3ML SQ SCH ×4 (06:34→21:00)
[2017-06-20] MEDS: LEVOTHYROXINE 50 MCG TABLET PO SCH (06:34)
[2017-06-20 06:52] LABS: BASOPHILS % (MANUAL) 1 % (0-2); LYMPHOCYTES % (MANUAL) 3 % (22-44); MONOCYTES % (MANUAL) 2 % (2-9); SEGMENTED NEUTROPHILS % 94 % (40-70)
[2017-06-20 06:57] LABS: MAN.DIFF COMMENT-IMPRESSION MANUAL DIFFERENTIAL; PLATELET MORPHOLOGY COMMENT ADEQUATE
[2017-06-20 07:00] VITALS: BP 122/44
[2017-06-20] MEDS: LINZESS 145 MCG PO SCH (09:00)
[2017-06-20] MEDS: SIMETHICONE 80 MG TAB.CHEW PO SCH ×4 (09:39→22:18)
[2017-06-20] MEDS: FOLIC ACID/VITAMIN B COMP W-C 1 MG CAPSULE PO SCH (09:39)
[2017-06-20] MEDS: LACTULOSE 20 GM/30 ML UDCUP PO SCH (09:39)
[2017-06-20] MEDS: IRON SUCROSE COMPLEX 100 MG in SODIUM CHLORIDE 0.9% 50 ML IV SCH (09:39)
[2017-06-20] MEDS: THIAMINE HCL 100 MG TABLET PO SCH (09:39)
[2017-06-20] MEDS: CALCITRIOL 0.25 MCG CAPSULE PO SCH (09:39)
[2017-06-20] MEDS: ACETAMINOPHEN 325 MG TAB PO PRN (09:40)
[2017-06-20 11:00] VITALS: BP 122/51
[2017-06-20] MEDS: ALBUMIN (HUMAN) 25% 50 ML IV SCH ×2 (12:48→22:19)
[2017-06-20 15:00] VITALS: BP 134/50
[2017-06-20] MEDS: WARFARIN SODIUM 5 MG TAB PO SCH (17:05)
[2017-06-20 20:00] VITALS: BP 141/52
[2017-06-20] MEDS: CEFTRIAXONE SODIUM 1 GM IVP SCH (22:19)
[2017-06-21] VITALS: BP 133/55
[2017-06-21 04:00] VITALS: BP 137/57
[2017-06-21 05:30] LABS: BASOPHILS % (AUTO) 0.8 % (0.0-5.0); EOSINOPHILS % (AUTO) 1.9 % (0.0-8.0); HEMATOCRIT 31.8 % (42-54); MEAN CORPUSCULAR HEMOGLOBIN 30.8 pg (27.0-33.0); MEAN CORPUSCULAR HGB CONC 35.1 g/dL (32.0-36.0); MEAN CORPUSCULAR VOLUME 87.8 fL (79-99); MONOCYTES % (AUTO) 7.1 % (3.0-13.0); NEUTROPHILS % (AUTO) 86.2 % (40.0-77.0); PLATELET COUNT (AUTO) 257 K/uL (130-400); RED BLOOD CELL COUNT(AUTO) 3.62 MIL/uL (4.50-6.20); RED CELL DISTRIBUTION WIDTH 15.1 % (11.0-15.5); WHITE BLOOD COUNT (AUTO) 14.2 K/uL (4.8-10.8)
[2017-06-21 05:32] LABS: INR 1.47 (0.85-1.15); PROTHROMBIN TIME 15.3 SEC (9.6-11.6)
[2017-06-21 05:44] LABS: ALBUMIN 1.7 g/dL (3.5-5.0); BILIRUBIN,TOTAL 0.4 mg/dL (0.2-1.0); CREATININE 1.4 mg/dL (0.5-1.5); POTASSIUM 4.7 mmol/L (3.5-5.1)
[2017-06-21] MEDS: LEVOTHYROXINE 50 MCG TABLET PO SCH (06:57)
[2017-06-21] MEDS: INSULIN HUMULIN R 100 UNIT/ML 3ML SQ SCH ×3 (06:58→16:24)
[2017-06-21 08:01] VITALS: BP 129/64
[2017-06-21] MEDS: ALBUMIN (HUMAN) 25% 50 ML IV SCH (08:36)
[2017-06-21] MEDS: FOLIC ACID/VITAMIN B COMP W-C 1 MG CAPSULE PO SCH (08:39)
[2017-06-21] MEDS: LACTULOSE 20 GM/30 ML UDCUP PO SCH (08:39)
[2017-06-21] MEDS: LINZESS 145 MCG PO SCH (08:39)
[2017-06-21] MEDS: SIMETHICONE 80 MG TAB.CHEW PO SCH ×2 (08:39→13:17)
[2017-06-21] MEDS: THIAMINE HCL 100 MG TABLET PO SCH (08:39)
[2017-06-21] MEDS: IRON SUCROSE COMPLEX 100 MG in SODIUM CHLORIDE 0.9% 50 ML IV SCH (09:18)
[2017-06-21 12:10] VITALS: BP 143/55
[2017-06-21] MEDS: WARFARIN SODIUM 5 MG TAB PO SCH (16:10)
[2017-06-21 16:26] VITALS: BP 143/65
== END 2017-06-21 16:57 | DRG 682 ==
LOC: EDH 10:40 → EDHIP 15:00 → OBSVTOIN 15:00 → 4CH 17:20
PROVIDERS: ADMIT Internal Medicine; ATTEND Internal Medicine
DX: N17.9 Acute kidney failure, unspecified (principal); I50.43 Acute on chronic combined systolic (congestive) and diastolic (congestive) heart failure; E87.0 Hyperosmolality and hypernatremia; E11.21 Type 2 diabetes mellitus with diabetic nephropathy; D69.6 Thrombocytopenia, unspecified; E11.22 Type 2 diabetes mellitus with diabetic chronic kidney disease; N39.0 Urinary tract infection, site not specified; I13.0 Hypertensive heart and chronic kidney disease with heart failure and stage 1 through stage 4 chronic kidney disease, or unspecified chronic kidney disease; E87.1 Hypo-osmolality and hyponatremia; I42.9 Cardiomyopathy, unspecified; R18.8 Other ascites; D64.9 Anemia, unspecified; E03.9 Hypothyroidism, unspecified; E78.5 Hyperlipidemia, unspecified; E87.5 Hyperkalemia; I25.10 Atherosclerotic heart disease of native coronary artery without angina pectoris; I48.91 Unspecified atrial fibrillation; K74.60 Unspecified cirrhosis of liver; N18.9 Chronic kidney disease, unspecified; Z79.01 Long term (current) use of anticoagulants; Z86.73 Personal history of transient ischemic attack (TIA), and cerebral infarction without residual deficits; Z95.1 Presence of aortocoronary bypass graft; Z79.4 Long term (current) use of insulin
CPT/HCPCS: 36415; 70450; 71045; 73030; 80048; 80053; 80305; 81001; 82140; 82533; 82550; 82553; 82728; 82948; 83540; 83550; 83735; 83874; 83880; 83930; 83935; 84100; 84300; 84443; 84484; 84550; 85025; 85027; 85610; 85730; 87088; 87186; 93005; 93971; 97039; A4218; A4344; J0696; J1756; J1815; J3475; J7030; J7120; P9047

== ENCOUNTER → 2017-08-24 | Outpatient (CLI) | payer OTHER ==
[~2017-08-24] MED LIST changes: -CIPR250T6 PO; -DOXA4TAB3 PO; +DOXA8TAB81 PO; +ENOX80DI8 SQ; +IOPAMIDOL-370 75 ML VIAL IV ONE; +IRON150C5 PO; -NIFE30TA10 PO; +ONDA4TAB10 PO; +ROCURONIUM BROMIDE 10MG/1ML 5ML VL ONE; +WARF-57 PO
== END | disposition home or self-care (01) ==
LOC: RAH 11:02
PROVIDERS: ATTEND Urology
DX: C60.9 Malignant neoplasm of penis, unspecified (principal); R91.8 Other nonspecific abnormal finding of lung field; R18.8 Other ascites; Z90.49 Acquired absence of other specified parts of digestive tract
CPT/HCPCS: 74178; Q9967

== ENCOUNTER 2017-08-27 13:26 | Inpatient (IN) | payer OTHER ==
[~2017-08-27] VITALS: Ht 182.9 cm; Wt 82.1 kg
[~2017-08-27 13:26] MED LIST changes: -ENOX80DI8 SQ; -IOPAMIDOL-370 75 ML VIAL IV ONE; -IRON150C5 PO; -ROCURONIUM BROMIDE 10MG/1ML 5ML VL ONE
[2017-08-27 14:30] LABS: BASOPHILS % (AUTO) 1.1 % (0.0-5.0); EOSINOPHILS % (AUTO) 1.1 % (0.0-8.0); HEMATOCRIT 34.1 % (42-54); LYMPHOCYTES % (AUTO) 16.2 % (21.0-51.0); MEAN CORPUSCULAR HEMOGLOBIN 30.7 pg (27.0-33.0); MEAN CORPUSCULAR HGB CONC 33.1 g/dL (32.0-36.0); MEAN CORPUSCULAR VOLUME 92.8 fL (79-99); MONOCYTES % (AUTO) 10.4 % (3.0-13.0); NEUTROPHILS % (AUTO) 71.2 % (40.0-77.0); NUCLEATED RED BLOOD CELLS 0.1 % (0.0-0.19); PLATELET COUNT (AUTO) 134 K/uL (130-400); RED BLOOD CELL COUNT(AUTO) 3.67 MIL/uL (4.50-6.20); RED CELL DISTRIBUTION WIDTH 17.8 % (11.0-15.5); WHITE BLOOD COUNT (AUTO) 4.6 K/uL (4.8-10.8)
[2017-08-27 14:45] LABS: CREATININE 1.3 mg/dL (0.5-1.5); POTASSIUM 3.5 mmol/L (3.5-5.1)
[2017-08-27 14:51] LABS: APPEARANCE,URINE Turbid (CLEAR); BILIRUBIN,URINE Small (NEGATIVE); COLOR,URINE Red (YELLOW); GLUCOSE, URINE (UA) Negative (NEGATIVE); KETONES,URINE Negative (NEGATIVE); LEUKOCYTE ESTERASE ,URINE Large (NEGATIVE); NITRATE,URINE Negative (NEGATIVE); OCCULT BLOOD,URINE Large (NEGATIVE); PROTEIN,URINE POS 1+ (NEGATIVE)
[2017-08-27 15:07] LABS: RBC,URINE Full Field /HPF (0-1)
[2017-08-27 15:09] LABS: BACTERIA,URINE Rare /HPF (None Seen)
[2017-08-27] MEDS ORDERED: CEFTRIAXONE SODIUM 1 GM ONE (16:51)
[2017-08-27 17:26] LABS: INR 1.22 (0.85-1.15); PARTIAL THROMBOPLASTIN TIME 35.9 SEC (26.3-35.5); PROTHROMBIN TIME 12.8 SEC (9.6-11.6)
[2017-08-27] MEDS ORDERED: HYDRALAZINE HCL 20 MG/ML VIAL IV PRN (20:00)
[2017-08-27] MEDS ORDERED: ACETAMINOPHEN 325 MG TAB PO PRN (20:00)
[2017-08-27] MEDS ORDERED: GLUCAGON 1MG KIT 1 MG ML IM PRN (20:00)
[2017-08-27] MEDS ORDERED: DEXTROSE 50%-WATER 50 ML DISP.SYRIN IV PRN (20:00)
[2017-08-27] MEDS ORDERED: MORPHINE SULFATE 2 MG/ML 1ML SYG IM PRN (20:00)
[2017-08-27 20:28] VITALS: BP 134/65
[2017-08-27] MEDS ORDERED: LORAZEPAM 0.5 MG TABLET PO SCH (20:45)
[2017-08-27] MEDS ORDERED: IRON150C5 PO (20:55)
[2017-08-27] MEDS ORDERED: ATORVASTATIN CALCIUM 20 MG TABLET PO SCH (21:00)
[2017-08-27] MEDS: INSULIN HUMULIN R 100 UNIT/ML 3ML SQ SCH (21:00)
[2017-08-27] MEDS ORDERED: LACTATED RINGERS 1000ML 1,000 ML IV ONE (21:51)
[2017-08-27] MEDS: FAMOTIDINE/PF 20 MG/2 ML VIAL IV SCH (21:54)
[2017-08-28] VITALS (22 sets, daily range): BP systolic 109–152; BP diastolic 40–73
[2017-08-28] MEDS ORDERED: ENOX80DI8 SQ (02:24)
[2017-08-28 03:29] LABS: BASOPHILS % (AUTO) 1.3 % (0.0-5.0); HEMATOCRIT 33.1 % (42-54); LYMPHOCYTES % (AUTO) 26.7 % (21.0-51.0); MEAN CORPUSCULAR HEMOGLOBIN 32.2 pg (27.0-33.0); MEAN CORPUSCULAR HGB CONC 34.6 g/dL (32.0-36.0); MEAN CORPUSCULAR VOLUME 92.9 fL (79-99); MONOCYTES % (AUTO) 10.6 % (3.0-13.0); NEUTROPHILS % (AUTO) 59.4 % (40.0-77.0); PLATELET COUNT (AUTO) 113 K/uL (130-400); RED BLOOD CELL COUNT(AUTO) 3.57 MIL/uL (4.50-6.20); RED CELL DISTRIBUTION WIDTH 17.7 % (11.0-15.5); WHITE BLOOD COUNT (AUTO) 4.8 K/uL (4.8-10.8)
[2017-08-28 03:31] LABS: INR 1.16 (0.85-1.15); PARTIAL THROMBOPLASTIN TIME 37.3 SEC (26.3-35.5); PROTHROMBIN TIME 12.1 SEC (9.6-11.6)
[2017-08-28 03:34] LABS: CREATININE 1.3 mg/dL (0.5-1.5); POTASSIUM 3.9 mmol/L (3.5-5.1)
[2017-08-28] MEDS: INSULIN HUMULIN R 100 UNIT/ML 3ML SQ SCH ×4 (05:38→21:00)
[2017-08-28] MEDS ORDERED: CEFTRIAXONE SODIUM 1 GM ONE (06:18)
[2017-08-28] MEDS ORDERED: CEFAZOLIN SODIUM 1 GM VIAL ONE (06:19)
[2017-08-28] MEDS ORDERED: DEXAMETHASONE SOD PHOSPHATE 10MG/ML 1ML VIAL ONE (07:09)
[2017-08-28] MEDS ORDERED: PROPOFOL 10 MG/ML 20ML VIAL IV ONE (07:09)
[2017-08-28] MEDS ORDERED: LIDOCAINE PF 2% 5ML ABBOJECT ONE (07:09)
[2017-08-28] MEDS ORDERED: MIDAZOLAM HCL 1 MG/ML 2ML VIAL ONE (07:09)
[2017-08-28] MEDS ORDERED: ONDANSETRON HCL 4 MG/2 ML VIAL ONE (07:09)
[2017-08-28] MEDS ORDERED: GLYCOPYRROLATE 0.2 MG/ML 5 ML VIAL ONE (07:09)
[2017-08-28] MEDS ORDERED: FENTANYL CITRATE PF 50 MCG/1 ML 5ML AMP IV ONE (07:19)
[2017-08-28] MEDS ORDERED: NEOMY SULF/BACITRAC ZN/POLY OINT 30GM TUBE TP ONE (08:31)
[2017-08-28] MEDS ORDERED: ENOXAPARIN SODIUM 40 MG/0.4 ML SYRINGE SQ SCH (09:00)
[2017-08-28] MEDS ORDERED: RIVAROXABAN 15 MG TABLET PO SCH (09:00)
[2017-08-28] MEDS ORDERED: ASPIRIN 325MG EC TAB 325 MG TABLET.DR PO SCH (09:00)
[2017-08-28] MEDS: CEFTRIAXONE SODIUM 1 GM IVP SCH (09:00)
[2017-08-28] MEDS ORDERED: FENTANYL CITRATE PF 50 MCG/1 ML 2ML VIAL ONE (09:04)
[2017-08-28] MEDS ORDERED: MEPERIDINE-PF 75 MG/ML SYG IM PRN (11:15)
[2017-08-28] MEDS ORDERED: ONDANSETRON HCL 4 MG/2 ML VIAL IVP PRN (11:15)
[2017-08-28] MEDS ORDERED: ACETAMINOPHEN 325 MG TAB PO PRN (11:15)
[2017-08-28] MEDS: SODIUM CHLORIDE 0.9% 1000ML 1,000 ML IV SCH (12:10)
[2017-08-28] MEDS: FAMOTIDINE/PF 20 MG/2 ML VIAL IV SCH ×2 (12:10→20:09)
[2017-08-28] MEDS ORDERED: ACETAMINOPHEN-CODEINE 300/30MG TAB PO PRN (12:15)
[2017-08-29] VITALS (7 sets, daily range): BP systolic 123–141; BP diastolic 54–81
[2017-08-29 05:10] LABS: CREATININE 1.5 mg/dL (0.5-1.5); POTASSIUM 4.8 mmol/L (3.5-5.1)
[2017-08-29 05:12] LABS: INR 1.12 (0.85-1.15); PARTIAL THROMBOPLASTIN TIME 30.3 SEC (26.3-35.5); PROTHROMBIN TIME 11.7 SEC (9.6-11.6)
[2017-08-29 05:15] LABS: HEMATOCRIT 33.9 % (42-54); MEAN CORPUSCULAR HEMOGLOBIN 32.7 pg (27.0-33.0); MEAN CORPUSCULAR HGB CONC 35.2 g/dL (32.0-36.0); MEAN CORPUSCULAR VOLUME 92.7 fL (79-99); NUCLEATED RED BLOOD CELLS 0.1 % (0.0-0.19); PLATELET COUNT (AUTO) 119 K/uL (130-400); RED BLOOD CELL COUNT(AUTO) 3.66 MIL/uL (4.50-6.20); WHITE BLOOD COUNT (AUTO) 5.2 K/uL (4.8-10.8)
[2017-08-29] MEDS: INSULIN HUMULIN R 100 UNIT/ML 3ML SQ SCH ×4 (06:20→20:39)
[2017-08-29] MEDS: SODIUM CHLORIDE 0.9% 1000ML 1,000 ML IV SCH ×2 (06:34→20:25)
[2017-08-29] MEDS: FAMOTIDINE/PF 20 MG/2 ML VIAL IV SCH ×2 (10:07→20:23)
[2017-08-29] MEDS: CEFTRIAXONE SODIUM 1 GM IVP SCH (10:07)
[2017-08-29] MEDS ORDERED: ACETAMINOPHEN-CODEINE 300/30MG TAB PO PRN (21:30)
[2017-08-29] MEDS ORDERED: CEPHALEXIN 500 MG CAPSULE PO SCH (21:30)
[2017-08-30 03:45] VITALS: BP 135/71
[2017-08-30] MEDS: INSULIN HUMULIN R 100 UNIT/ML 3ML SQ SCH (05:39)
[2017-08-30 07:00] VITALS: BP 131/62
[2017-08-30] MEDS: FAMOTIDINE/PF 20 MG/2 ML VIAL IV SCH (09:32)
[2017-08-30] MEDS: CEFTRIAXONE SODIUM 1 GM IVP SCH (09:32)
== END 2017-08-30 13:50 | DRG 709 ==
LOC: EDH 13:26 → OBSVTOIN 16:43 → EDHIP 16:43 → 3AH 18:28
PROVIDERS: ADMIT Internal Medicine Nephrology; ATTEND Internal Medicine Nephrology
PROC: 0VBSXZZ Excision of Penis, External Approach (ICD-10-PCS; principal; 2017-08-28 07:00)
DX: C60.9 Malignant neoplasm of penis, unspecified (principal); N39.0 Urinary tract infection, site not specified; I50.9 Heart failure, unspecified; I11.0 Hypertensive heart disease with heart failure; I48.91 Unspecified atrial fibrillation; R31.0 Gross hematuria; E11.9 Type 2 diabetes mellitus without complications; Z79.4 Long term (current) use of insulin; K74.60 Unspecified cirrhosis of liver; Z95.1 Presence of aortocoronary bypass graft
CPT/HCPCS: 36415; 71046; 80048; 81001; 82948; 85025; 85027; 85610; 85730; 87088; 88304; 88305; 88307; 93005; 97039; A4218; A4344; J0690; J0696; J1100; J2001; J2175; J2250; J2405; J2704; J3010; J3490; J7030; J7120

== ENCOUNTER → 2018-05-13 | Outpatient (CLI) | payer OTHER ==
[~2018-05-13] MED LIST changes: -CHOL100040 PO; +ENOX80DI8 SQ; -FERR325T22 PO; +IRON150C5 PO; +LIDOCAINE HCL 1% 20 ML VIAL ONE; -LINA145C PO; -PANT40TA25 PO; -POTA-9 PO; -SILV50CR31 TP; -SIMV20TA6 PO
[2018-05-13 08:20] LABS: BASOPHILS % (AUTO) 1.1 % (0.0-5.0); EOSINOPHILS % (AUTO) 0.5 % (0.0-8.0); HEMATOCRIT 40.8 % (42-54); LYMPHOCYTES % (AUTO) 12.6 % (21.0-51.0); MEAN CORPUSCULAR HEMOGLOBIN 30.2 pg (27.0-33.0); MEAN CORPUSCULAR HGB CONC 32.6 g/dL (32.0-36.0); MEAN CORPUSCULAR VOLUME 92.8 fL (79-99); MONOCYTES % (AUTO) 7.5 % (3.0-13.0); NEUTROPHILS % (AUTO) 78.3 % (40.0-77.0); NUCLEATED RED BLOOD CELLS 0.1 % (0.0-0.19); PLATELET COUNT (AUTO) 119 K/uL (130-400); RED CELL DISTRIBUTION WIDTH 17.7 % (11.0-15.5); WHITE BLOOD COUNT (AUTO) 4.4 K/uL (4.8-10.8)
[2018-05-13 08:27] LABS: CREATININE 1.4 mg/dL (0.5-1.5); POTASSIUM 4.1 mmol/L (3.5-5.1)
[2018-05-13 08:32] LABS: INR 1.17 (0.85-1.15); PARTIAL THROMBOPLASTIN TIME 25.2 SEC (26.3-35.5); PROTHROMBIN TIME 12.2 SEC (9.6-11.6)
--- NOTE | 2018-05-13 09:18 | NUR ---
ALBUMIN INFUSION PATIENT SCHEDULED FOR U/S GD PARACENTESIS WITH ALBUMIN 25% 50 GRAMS IV TO BE GIVEN DURING PARACENTESIS. 2.5 LITERS OF FLUID REMOVED AND PATIENT SILVERIO NOT MEET CRITERIA WITH HOSPITAL ALBUMIN PROTOCOL. DR Nicolasa HAMILTON'S OFFICE NOTIFIED ABOUT ALBUMIN ORDER NOT BEING FULFILLED PER PROTOCOL.
--- NOTE | 2018-05-13 09:30 | NUR ---
U/S GD PARACENTESIS PROCEDURE PERFORMED BY DR Tayo ABREU. PUNCTURE SITE RLQ AND PATIENT TOLERATED PROCEDURE WELL. TOTAL REMOVED 2.5 LITERS OF DARK LUIS COLORED FLUID. SPECIMEN SENT TO LAB. END OF PROCEDURE AT 0900. CATHETER REMOVED AND DRESSING APPLIED. NO BLEEDING NOTED. DISCHARGE INSTRUCTIONS GIVEN TO PATIENT AND VERBALIZED UNDERSTANDING. DISCHARGED VIA W/C AT 0930. AAO X3 WITH NO C/O PAIN.
[2018-05-13 13:00] LABS: ALBUMIN,BODY FLUID 0.9 g/dL
[2018-05-13 13:15] LABS: APPEARANCE BODY FLUID CLOUDY (CLEAR); BODY FLUID WBC 285 /cu. mm.; COLOR,BODY FLUID DARK YELLOW (LT YELLOW); SPECIMENTYPE,BODY FLUID ASCITES; TOTAL VOLUME,BODY FLUID 2500 mL
[2018-05-13 13:16] LABS: BODY FLUID RBC 6725 /cu. mm.
[2018-05-13 13:19] LABS: BF LYMPHOCYTE 61 %; BF MESOTHELIAL 19 %; BF MONOCYTE 8 %
== END | disposition home or self-care (01) ==
LOC: RAH 07:40
PROVIDERS: ATTEND Internal Medicine Gastroenterology
DX: R18.8 Other ascites (principal); K74.60 Unspecified cirrhosis of liver; K21.9 Gastro-esophageal reflux disease without esophagitis; E03.9 Hypothyroidism, unspecified; I48.91 Unspecified atrial fibrillation; E78.5 Hyperlipidemia, unspecified; I25.10 Atherosclerotic heart disease of native coronary artery without angina pectoris; Z79.899 Other long term (current) drug therapy; Z98.890 Other specified postprocedural states
CPT/HCPCS: 36415; 49083; 80048; 82042; 84157; 85025; 85610; 85730; 87071; 87205; 88108; 88305; 89051; A4215

== ENCOUNTER 2018-05-16 08:58 | Emergency (ER) | payer OTHER ==
[~2018-05-16 08:58] MED LIST changes: -LIDOCAINE HCL 1% 20 ML VIAL ONE
[2018-05-16] MEDS ORDERED: ONDANSETRON HCL 4 MG/2 ML VIAL ONE (09:30)
[2018-05-16] MEDS ORDERED: MORPHINE SULFATE 2 MG/ML 1ML SYG ONE (09:30)
[2018-05-16 09:56] LABS: BASOPHILS % (AUTO) 1.5 % (0.0-5.0); EOSINOPHILS % (AUTO) 0.7 % (0.0-8.0); HEMATOCRIT 42.6 % (42-54); MEAN CORPUSCULAR HEMOGLOBIN 30.2 pg (27.0-33.0); MEAN CORPUSCULAR HGB CONC 32.6 g/dL (32.0-36.0); MEAN CORPUSCULAR VOLUME 92.6 fL (79-99); MONOCYTES % (AUTO) 7.6 % (3.0-13.0); NEUTROPHILS % (AUTO) 78.2 % (40.0-77.0); PLATELET COUNT (AUTO) 119 K/uL (130-400); RED CELL DISTRIBUTION WIDTH 18.3 % (11.0-15.5); WHITE BLOOD COUNT (AUTO) 3.9 K/uL (4.8-10.8)
[2018-05-16 10:10] LABS: CREATININE 1.3 mg/dL (0.5-1.5); POTASSIUM 3.5 mmol/L (3.5-5.1)
[2018-05-16 10:16] LABS: ALBUMIN 1.9 g/dL (3.5-5.0); BILIRUBIN,DIRECT 0.4 mg/dL (0.0-0.3); BILIRUBIN,TOTAL 1.4 mg/dL (0.2-1.0); TOTAL PROTEIN, SERUM 4.9 g/dL (6.0-8.3)
== END 2018-05-16 13:19 | disposition home or self-care (01) ==
LOC: EDH 08:58
DX: M48.54XA Collapsed vertebra, not elsewhere classified, thoracic region, initial encounter for fracture (principal); R10.9 Unspecified abdominal pain; K59.00 Constipation, unspecified; I48.91 Unspecified atrial fibrillation; I11.0 Hypertensive heart disease with heart failure; I50.9 Heart failure, unspecified; E11.9 Type 2 diabetes mellitus without complications; K74.60 Unspecified cirrhosis of liver; Z79.4 Long term (current) use of insulin; Z90.49 Acquired absence of other specified parts of digestive tract
CPT/HCPCS: 36415; 74176; 80048; 80076; 83690; 85025; 99284; J2405

== ENCOUNTER → 2018-08-29 | Outpatient (CLI) | payer OTHER ==
[~2018-08-29] MED LIST changes: +LIDOCAINE/PRILOCAINE CREAM 5GM TUBE TP ONE
[2018-08-29 15:02] VITALS: BP 151/72
== END | disposition home or self-care (01) ==
LOC: WHH 09:45
PROVIDERS: ATTEND Surgery
DX: E11.622 Type 2 diabetes mellitus with other skin ulcer (principal); L97.522 Non-pressure chronic ulcer of other part of left foot with fat layer exposed; I87.312 Chronic venous hypertension (idiopathic) with ulcer of left lower extremity; E11.22 Type 2 diabetes mellitus with diabetic chronic kidney disease; I13.0 Hypertensive heart and chronic kidney disease with heart failure and stage 1 through stage 4 chronic kidney disease, or unspecified chronic kidney disease; I50.9 Heart failure, unspecified; N18.3 Chronic kidney disease, stage 3 (moderate); E11.51 Type 2 diabetes mellitus with diabetic peripheral angiopathy without gangrene; I48.91 Unspecified atrial fibrillation; I87.2 Venous insufficiency (chronic) (peripheral); I25.10 Atherosclerotic heart disease of native coronary artery without angina pectoris; K21.9 Gastro-esophageal reflux disease without esophagitis; K74.60 Unspecified cirrhosis of liver; N40.0 Benign prostatic hyperplasia without lower urinary tract symptoms; E78.5 Hyperlipidemia, unspecified; E03.9 Hypothyroidism, unspecified; Z98.42 Cataract extraction status, left eye; Z98.41 Cataract extraction status, right eye; Z79.899 Other long term (current) drug therapy; Z95.1 Presence of aortocoronary bypass graft; Z90.49 Acquired absence of other specified parts of digestive tract; Z79.4 Long term (current) use of insulin
CPT/HCPCS: 11042; A4450; A6021; A6197; A6452; G0463; J3490

== ENCOUNTER → 2018-09-03 | Outpatient (CLI) | payer OTHER ==
[~2018-09-03] MED LIST changes: -LIDOCAINE/PRILOCAINE CREAM 5GM TUBE TP ONE
== END | disposition home or self-care (01) ==
LOC: WHH 09:30
PROVIDERS: ATTEND Surgery
DX: E11.622 Type 2 diabetes mellitus with other skin ulcer (principal); L97.522 Non-pressure chronic ulcer of other part of left foot with fat layer exposed; I87.312 Chronic venous hypertension (idiopathic) with ulcer of left lower extremity; E11.22 Type 2 diabetes mellitus with diabetic chronic kidney disease; I13.0 Hypertensive heart and chronic kidney disease with heart failure and stage 1 through stage 4 chronic kidney disease, or unspecified chronic kidney disease; I50.9 Heart failure, unspecified; N18.3 Chronic kidney disease, stage 3 (moderate); E11.51 Type 2 diabetes mellitus with diabetic peripheral angiopathy without gangrene; I48.91 Unspecified atrial fibrillation; I87.2 Venous insufficiency (chronic) (peripheral); I25.10 Atherosclerotic heart disease of native coronary artery without angina pectoris; K21.9 Gastro-esophageal reflux disease without esophagitis; K74.60 Unspecified cirrhosis of liver; N40.0 Benign prostatic hyperplasia without lower urinary tract symptoms; E78.5 Hyperlipidemia, unspecified; E03.9 Hypothyroidism, unspecified; Z98.42 Cataract extraction status, left eye; Z98.41 Cataract extraction status, right eye; Z79.899 Other long term (current) drug therapy; Z95.1 Presence of aortocoronary bypass graft; Z90.49 Acquired absence of other specified parts of digestive tract; Z79.4 Long term (current) use of insulin
CPT/HCPCS: 93922

== ENCOUNTER → 2018-09-12 | Outpatient (CLI) | payer OTHER ==
[~2018-09-12] MED LIST changes: +LIDOCAINE/PRILOCAINE CREAM 5GM TUBE TP ONE
[2018-09-12 13:51] VITALS: BP 133/69
== END | disposition home or self-care (01) ==
LOC: WHH 09:30
PROVIDERS: ATTEND Surgery
DX: E11.622 Type 2 diabetes mellitus with other skin ulcer (principal); L97.822 Non-pressure chronic ulcer of other part of left lower leg with fat layer exposed; I87.312 Chronic venous hypertension (idiopathic) with ulcer of left lower extremity; E11.22 Type 2 diabetes mellitus with diabetic chronic kidney disease; I13.0 Hypertensive heart and chronic kidney disease with heart failure and stage 1 through stage 4 chronic kidney disease, or unspecified chronic kidney disease; N18.3 Chronic kidney disease, stage 3 (moderate); I50.9 Heart failure, unspecified; E11.51 Type 2 diabetes mellitus with diabetic peripheral angiopathy without gangrene; I48.91 Unspecified atrial fibrillation; I87.2 Venous insufficiency (chronic) (peripheral); I25.10 Atherosclerotic heart disease of native coronary artery without angina pectoris; K21.9 Gastro-esophageal reflux disease without esophagitis; K74.60 Unspecified cirrhosis of liver; N40.0 Benign prostatic hyperplasia without lower urinary tract symptoms; E78.5 Hyperlipidemia, unspecified; E03.9 Hypothyroidism, unspecified; Z98.41 Cataract extraction status, right eye; Z98.42 Cataract extraction status, left eye; Z79.899 Other long term (current) drug therapy; Z95.1 Presence of aortocoronary bypass graft; Z90.49 Acquired absence of other specified parts of digestive tract; Z79.4 Long term (current) use of insulin
CPT/HCPCS: 11042; A6209; J3490

== ENCOUNTER → 2018-09-20 | Outpatient (CLI) | payer OTHER ==
[2018-09-20 10:58] VITALS: BP 123/65
== END | disposition home or self-care (01) ==
LOC: WHH 08:30
PROVIDERS: ATTEND Surgery
DX: E11.622 Type 2 diabetes mellitus with other skin ulcer (principal); L97.821 Non-pressure chronic ulcer of other part of left lower leg limited to breakdown of skin; I87.312 Chronic venous hypertension (idiopathic) with ulcer of left lower extremity; E11.22 Type 2 diabetes mellitus with diabetic chronic kidney disease; I13.0 Hypertensive heart and chronic kidney disease with heart failure and stage 1 through stage 4 chronic kidney disease, or unspecified chronic kidney disease; N18.3 Chronic kidney disease, stage 3 (moderate); I50.9 Heart failure, unspecified; E11.51 Type 2 diabetes mellitus with diabetic peripheral angiopathy without gangrene; I48.91 Unspecified atrial fibrillation; I87.2 Venous insufficiency (chronic) (peripheral); K21.9 Gastro-esophageal reflux disease without esophagitis; K74.60 Unspecified cirrhosis of liver; N40.0 Benign prostatic hyperplasia without lower urinary tract symptoms; E03.9 Hypothyroidism, unspecified; Z98.41 Cataract extraction status, right eye; Z98.42 Cataract extraction status, left eye; Z79.899 Other long term (current) drug therapy; Z95.1 Presence of aortocoronary bypass graft; Z90.49 Acquired absence of other specified parts of digestive tract; Z79.4 Long term (current) use of insulin
CPT/HCPCS: 82948; A6209; G0463; J3490; 11042

== ENCOUNTER → 2018-10-04 | Outpatient (CLI) | payer OTHER ==
[2018-10-04 11:36] VITALS: BP 137/55
== END | disposition home or self-care (01) ==
LOC: WHH 08:45
PROVIDERS: ATTEND Surgery
DX: I83.028 Varicose veins of left lower extremity with ulcer other part of lower leg (principal); L97.821 Non-pressure chronic ulcer of other part of left lower leg limited to breakdown of skin; I10 Essential (primary) hypertension; I48.91 Unspecified atrial fibrillation; N40.0 Benign prostatic hyperplasia without lower urinary tract symptoms; E11.22 Type 2 diabetes mellitus with diabetic chronic kidney disease; I13.0 Hypertensive heart and chronic kidney disease with heart failure and stage 1 through stage 4 chronic kidney disease, or unspecified chronic kidney disease; N18.3 Chronic kidney disease, stage 3 (moderate); I50.9 Heart failure, unspecified; K21.9 Gastro-esophageal reflux disease without esophagitis; E03.9 Hypothyroidism, unspecified; E11.51 Type 2 diabetes mellitus with diabetic peripheral angiopathy without gangrene; I87.2 Venous insufficiency (chronic) (peripheral); I25.10 Atherosclerotic heart disease of native coronary artery without angina pectoris; E78.5 Hyperlipidemia, unspecified; Z79.4 Long term (current) use of insulin; Z79.899 Other long term (current) drug therapy; Z95.1 Presence of aortocoronary bypass graft; Z90.49 Acquired absence of other specified parts of digestive tract; Z98.42 Cataract extraction status, left eye; Z98.41 Cataract extraction status, right eye
CPT/HCPCS: A6209; G0463; J3490; 11042

== ENCOUNTER → 2018-10-18 | Outpatient (CLI) | payer OTHER ==
[2018-10-18 13:31] VITALS: BP 130/68
== END | disposition home or self-care (01) ==
LOC: WHH 09:00
PROVIDERS: ATTEND Surgery
DX: E11.622 Type 2 diabetes mellitus with other skin ulcer (principal); I83.028 Varicose veins of left lower extremity with ulcer other part of lower leg; L97.821 Non-pressure chronic ulcer of other part of left lower leg limited to breakdown of skin; S70.321A Blister (nonthermal), right thigh, initial encounter; E11.22 Type 2 diabetes mellitus with diabetic chronic kidney disease; I13.2 Hypertensive heart and chronic kidney disease with heart failure and with stage 5 chronic kidney disease, or end stage renal disease; N18.3 Chronic kidney disease, stage 3 (moderate); I50.9 Heart failure, unspecified; E11.51 Type 2 diabetes mellitus with diabetic peripheral angiopathy without gangrene; I48.91 Unspecified atrial fibrillation; I87.2 Venous insufficiency (chronic) (peripheral); I25.10 Atherosclerotic heart disease of native coronary artery without angina pectoris; N40.0 Benign prostatic hyperplasia without lower urinary tract symptoms; K21.9 Gastro-esophageal reflux disease without esophagitis; E03.9 Hypothyroidism, unspecified; E78.5 Hyperlipidemia, unspecified; Z79.4 Long term (current) use of insulin; Z79.899 Other long term (current) drug therapy; Z95.1 Presence of aortocoronary bypass graft; Z90.49 Acquired absence of other specified parts of digestive tract; Z98.42 Cataract extraction status, left eye; Z98.41 Cataract extraction status, right eye; X58.XXXA Exposure to other specified factors, initial encounter; Y93.89 Activity, other specified; Y92.89 Other specified places as the place of occurrence of the external cause; Y99.8 Other external cause status
CPT/HCPCS: A6021; A6197; G0463; J3490

== ENCOUNTER → 2018-10-25 | Outpatient (CLI) | payer OTHER ==
[2018-10-25 12:12] VITALS: BP 111/66
== END | disposition home or self-care (01) ==
LOC: WHH 09:00
PROVIDERS: ATTEND Surgery
DX: E11.622 Type 2 diabetes mellitus with other skin ulcer (principal); I83.028 Varicose veins of left lower extremity with ulcer other part of lower leg; L97.821 Non-pressure chronic ulcer of other part of left lower leg limited to breakdown of skin; S70.321D Blister (nonthermal), right thigh, subsequent encounter; E11.22 Type 2 diabetes mellitus with diabetic chronic kidney disease; I13.2 Hypertensive heart and chronic kidney disease with heart failure and with stage 5 chronic kidney disease, or end stage renal disease; N18.3 Chronic kidney disease, stage 3 (moderate); I50.9 Heart failure, unspecified; E11.51 Type 2 diabetes mellitus with diabetic peripheral angiopathy without gangrene; I48.91 Unspecified atrial fibrillation; I87.2 Venous insufficiency (chronic) (peripheral); I25.10 Atherosclerotic heart disease of native coronary artery without angina pectoris; N40.0 Benign prostatic hyperplasia without lower urinary tract symptoms; K21.9 Gastro-esophageal reflux disease without esophagitis; E03.9 Hypothyroidism, unspecified; E78.5 Hyperlipidemia, unspecified; Z79.4 Long term (current) use of insulin; Z79.899 Other long term (current) drug therapy; Z95.1 Presence of aortocoronary bypass graft; Z90.49 Acquired absence of other specified parts of digestive tract; Z98.42 Cataract extraction status, left eye; Z98.41 Cataract extraction status, right eye; X58.XXXD Exposure to other specified factors, subsequent encounter
CPT/HCPCS: 11042; A6021; A6196; J3490

== ENCOUNTER → 2018-11-01 | Outpatient (CLI) | payer OTHER ==
[2018-11-01 14:17] VITALS: BP 133/60
== END | disposition home or self-care (01) ==
LOC: WHH 09:00
PROVIDERS: ATTEND Surgery
DX: E11.622 Type 2 diabetes mellitus with other skin ulcer (principal); I83.028 Varicose veins of left lower extremity with ulcer other part of lower leg; L97.822 Non-pressure chronic ulcer of other part of left lower leg with fat layer exposed; E11.22 Type 2 diabetes mellitus with diabetic chronic kidney disease; I13.0 Hypertensive heart and chronic kidney disease with heart failure and stage 1 through stage 4 chronic kidney disease, or unspecified chronic kidney disease; N18.3 Chronic kidney disease, stage 3 (moderate); I50.9 Heart failure, unspecified; E11.51 Type 2 diabetes mellitus with diabetic peripheral angiopathy without gangrene; I48.91 Unspecified atrial fibrillation; I87.2 Venous insufficiency (chronic) (peripheral); I25.10 Atherosclerotic heart disease of native coronary artery without angina pectoris; N40.0 Benign prostatic hyperplasia without lower urinary tract symptoms; K21.9 Gastro-esophageal reflux disease without esophagitis; E03.9 Hypothyroidism, unspecified; E78.5 Hyperlipidemia, unspecified; Z79.4 Long term (current) use of insulin; Z79.899 Other long term (current) drug therapy; Z95.1 Presence of aortocoronary bypass graft; Z90.49 Acquired absence of other specified parts of digestive tract; Z98.42 Cataract extraction status, left eye; Z98.41 Cataract extraction status, right eye
CPT/HCPCS: 11042; A6021; A6250; J3490

== ENCOUNTER → 2018-11-08 | Outpatient (CLI) | payer OTHER ==
[~2018-11-08] MED LIST changes: +LIDOCAINE HCL 2% JELLY 5 ML TP ONE; -LIDOCAINE/PRILOCAINE CREAM 5GM TUBE TP ONE
[2018-11-08 12:52] VITALS: BP 109/61
== END | disposition home or self-care (01) ==
LOC: WHH 08:45
PROVIDERS: ATTEND Surgery
DX: E11.622 Type 2 diabetes mellitus with other skin ulcer (principal); I83.028 Varicose veins of left lower extremity with ulcer other part of lower leg; L97.822 Non-pressure chronic ulcer of other part of left lower leg with fat layer exposed; S61.411D Laceration without foreign body of right hand, subsequent encounter; E11.22 Type 2 diabetes mellitus with diabetic chronic kidney disease; I13.0 Hypertensive heart and chronic kidney disease with heart failure and stage 1 through stage 4 chronic kidney disease, or unspecified chronic kidney disease; N18.3 Chronic kidney disease, stage 3 (moderate); I50.9 Heart failure, unspecified; E11.51 Type 2 diabetes mellitus with diabetic peripheral angiopathy without gangrene; I48.91 Unspecified atrial fibrillation; I87.2 Venous insufficiency (chronic) (peripheral); I25.10 Atherosclerotic heart disease of native coronary artery without angina pectoris; N40.0 Benign prostatic hyperplasia without lower urinary tract symptoms; K21.9 Gastro-esophageal reflux disease without esophagitis; E03.9 Hypothyroidism, unspecified; E78.5 Hyperlipidemia, unspecified; Z79.4 Long term (current) use of insulin; Z79.899 Other long term (current) drug therapy; Z95.1 Presence of aortocoronary bypass graft; Z90.49 Acquired absence of other specified parts of digestive tract; Z98.42 Cataract extraction status, left eye; Z98.41 Cataract extraction status, right eye; X58.XXXD Exposure to other specified factors, subsequent encounter
CPT/HCPCS: A6021; G0463

== ENCOUNTER → 2018-11-15 | Outpatient (CLI) | payer OTHER ==
[~2018-11-15] MED LIST changes: -LIDOCAINE HCL 2% JELLY 5 ML TP ONE; +LIDOCAINE/PRILOCAINE CREAM 5GM TUBE TP ONE
[2018-11-15 13:48] VITALS: BP 137/61
== END | disposition home or self-care (01) ==
LOC: WHH 09:04
PROVIDERS: ATTEND Surgery
DX: E11.622 Type 2 diabetes mellitus with other skin ulcer (principal); I83.028 Varicose veins of left lower extremity with ulcer other part of lower leg; L97.822 Non-pressure chronic ulcer of other part of left lower leg with fat layer exposed; S61.411D Laceration without foreign body of right hand, subsequent encounter; E11.22 Type 2 diabetes mellitus with diabetic chronic kidney disease; I13.0 Hypertensive heart and chronic kidney disease with heart failure and stage 1 through stage 4 chronic kidney disease, or unspecified chronic kidney disease; N18.3 Chronic kidney disease, stage 3 (moderate); I50.9 Heart failure, unspecified; E11.51 Type 2 diabetes mellitus with diabetic peripheral angiopathy without gangrene; I48.91 Unspecified atrial fibrillation; I87.2 Venous insufficiency (chronic) (peripheral); I25.10 Atherosclerotic heart disease of native coronary artery without angina pectoris; N40.0 Benign prostatic hyperplasia without lower urinary tract symptoms; K21.9 Gastro-esophageal reflux disease without esophagitis; E03.9 Hypothyroidism, unspecified; E78.5 Hyperlipidemia, unspecified; Z79.4 Long term (current) use of insulin; Z79.899 Other long term (current) drug therapy; Z95.1 Presence of aortocoronary bypass graft; Z90.49 Acquired absence of other specified parts of digestive tract; Z98.42 Cataract extraction status, left eye; Z98.41 Cataract extraction status, right eye; X58.XXXD Exposure to other specified factors, subsequent encounter
CPT/HCPCS: 11042; A6021; J3490

== ENCOUNTER → 2018-11-22 | Outpatient (CLI) | payer OTHER ==
[2018-11-22 11:52] VITALS: BP 128/60
== END | disposition home or self-care (01) ==
LOC: WHH 08:45
PROVIDERS: ATTEND Surgery
DX: E11.622 Type 2 diabetes mellitus with other skin ulcer (principal); I83.028 Varicose veins of left lower extremity with ulcer other part of lower leg; L97.821 Non-pressure chronic ulcer of other part of left lower leg limited to breakdown of skin; S61.411D Laceration without foreign body of right hand, subsequent encounter; E11.22 Type 2 diabetes mellitus with diabetic chronic kidney disease; I13.0 Hypertensive heart and chronic kidney disease with heart failure and stage 1 through stage 4 chronic kidney disease, or unspecified chronic kidney disease; N18.3 Chronic kidney disease, stage 3 (moderate); I50.9 Heart failure, unspecified; E11.51 Type 2 diabetes mellitus with diabetic peripheral angiopathy without gangrene; I48.91 Unspecified atrial fibrillation; I87.2 Venous insufficiency (chronic) (peripheral); I25.10 Atherosclerotic heart disease of native coronary artery without angina pectoris; K21.9 Gastro-esophageal reflux disease without esophagitis; E03.9 Hypothyroidism, unspecified; E78.5 Hyperlipidemia, unspecified; N40.0 Benign prostatic hyperplasia without lower urinary tract symptoms; Z79.4 Long term (current) use of insulin; Z79.899 Other long term (current) drug therapy; Z95.1 Presence of aortocoronary bypass graft; Z90.49 Acquired absence of other specified parts of digestive tract; Z98.41 Cataract extraction status, right eye; Z98.42 Cataract extraction status, left eye; X58.XXXD Exposure to other specified factors, subsequent encounter
CPT/HCPCS: 11042; A6021; J3490

== ENCOUNTER → 2018-11-29 | Outpatient (CLI) | payer OTHER ==
[~2018-11-29] MED LIST changes: -LIDOCAINE/PRILOCAINE CREAM 5GM TUBE TP ONE
[2018-11-29 12:11] VITALS: BP 126/71
== END | disposition home or self-care (01) ==
LOC: WHH 09:00
PROVIDERS: ATTEND Surgery
DX: E11.622 Type 2 diabetes mellitus with other skin ulcer (principal); I87.312 Chronic venous hypertension (idiopathic) with ulcer of left lower extremity; L97.828 Non-pressure chronic ulcer of other part of left lower leg with other specified severity; E11.51 Type 2 diabetes mellitus with diabetic peripheral angiopathy without gangrene; I10 Essential (primary) hypertension; E11.22 Type 2 diabetes mellitus with diabetic chronic kidney disease; I13.0 Hypertensive heart and chronic kidney disease with heart failure and stage 1 through stage 4 chronic kidney disease, or unspecified chronic kidney disease; N18.3 Chronic kidney disease, stage 3 (moderate); I50.9 Heart failure, unspecified; I48.91 Unspecified atrial fibrillation; I87.2 Venous insufficiency (chronic) (peripheral); I25.10 Atherosclerotic heart disease of native coronary artery without angina pectoris; K21.9 Gastro-esophageal reflux disease without esophagitis; E78.5 Hyperlipidemia, unspecified; E03.9 Hypothyroidism, unspecified; N40.0 Benign prostatic hyperplasia without lower urinary tract symptoms; Z90.49 Acquired absence of other specified parts of digestive tract; Z98.42 Cataract extraction status, left eye; Z98.41 Cataract extraction status, right eye; Z95.1 Presence of aortocoronary bypass graft; Z79.899 Other long term (current) drug therapy; Z79.4 Long term (current) use of insulin
CPT/HCPCS: G0463

== ENCOUNTER → 2018-12-09 | Outpatient (CLI) | payer OTHER ==
[~2018-12-09] MED LIST changes: +ALBUMIN (HUMAN) 25% 200 ML IV SCH
[2018-12-09 10:03] LABS: HEMATOCRIT 44.1 % (42-54); MEAN CORPUSCULAR HEMOGLOBIN 32.7 pg (27.0-33.0); MEAN CORPUSCULAR HGB CONC 33.6 g/dL (32.0-36.0); MEAN CORPUSCULAR VOLUME 97.4 fL (79-99); NUCLEATED RED BLOOD CELLS 0.1 % (0.0-0.19); PLATELET COUNT (AUTO) 108 K/uL (130-400); RED BLOOD CELL COUNT(AUTO) 4.53 MIL/uL (4.50-6.20); RED CELL DISTRIBUTION WIDTH 15.3 % (11.0-15.5); WHITE BLOOD COUNT (AUTO) 3.6 K/uL (4.8-10.8)
[2018-12-09 10:13] LABS: INR 1.19 (0.85-1.15); PROTHROMBIN TIME 12.5 SEC (9.6-11.6)
[2018-12-09 10:16] LABS: ALBUMIN 1.9 g/dL (3.5-5.0); BILIRUBIN,TOTAL 1.6 mg/dL (0.2-1.0); CREATININE 1.7 mg/dL (0.5-1.5); POTASSIUM 3.4 mmol/L (3.5-5.1); TOTAL PROTEIN, SERUM 4.6 g/dL (6.0-8.3)
--- NOTE | 2018-12-09 11:30 | NUR ---
U/S GD PARACENTESIS PROCEDURE PERFORMED BY DR Tayo ABREU. PUNCTURE SITE RLQ AND PATIENT TOLERATED PROCEDURE WELL. TOTAL REMOVED 3.5 LITERS OF DARK LUIS FLUID. SPECIMEN SENT TO LAB. END OF PROCEDURE AT 1100. CATHETER REMOVED AND DRESSING APPLIED. NO BLEEDING NOTED. DISCHARGE INSTRUCTIONS GIVEN TO PATIENT AND VERBALIZED UNDERSTANDING. DISCHARGED VIA W/C AT 1130. AAO X3 WITH NO C/O PAIN.
[2018-12-09 13:10] LABS: APPEARANCE BODY FLUID SLIGHTLY CLOUDY (CLEAR); COLOR,BODY FLUID DARK YELLOW (LT YELLOW); SPECIMENTYPE,BODY FLUID ASCITES; TOTAL VOLUME,BODY FLUID 3500 mL
[2018-12-09 13:12] LABS: BODY FLUID RBC 3900 /cu. mm.; BODY FLUID WBC 234 /cu. mm.
[2018-12-09 13:22] LABS: BF LYMPHOCYTE 37 %; BF MESOTHELIAL 61 %; BF MONOCYTE 1 %
== END ==
LOC: RAH 09:11
PROVIDERS: ATTEND Internal Medicine Gastroenterology
DX: R18.8 Other ascites (principal); K74.60 Unspecified cirrhosis of liver; R14.0 Abdominal distension (gaseous); E78.5 Hyperlipidemia, unspecified; I10 Essential (primary) hypertension; E03.9 Hypothyroidism, unspecified; M19.90 Unspecified osteoarthritis, unspecified site; I25.10 Atherosclerotic heart disease of native coronary artery without angina pectoris; K21.9 Gastro-esophageal reflux disease without esophagitis; I48.91 Unspecified atrial fibrillation; Z79.899 Other long term (current) drug therapy; Z79.01 Long term (current) use of anticoagulants; Z90.49 Acquired absence of other specified parts of digestive tract; Z95.1 Presence of aortocoronary bypass graft; Z98.890 Other specified postprocedural states
CPT/HCPCS: 36415; 49083; 80053; 82105; 85027; 85610; 87071; 87205; 88108; 88305; 89051; A4215

== ENCOUNTER → 2018-12-13 | Outpatient (CLI) | payer OTHER ==
[~2018-12-13] MED LIST changes: -ALBUMIN (HUMAN) 25% 200 ML IV SCH; +LIDOCAINE/PRILOCAINE CREAM 5GM TUBE TP ONE
[2018-12-13 13:40] VITALS: BP 128/63
== END | disposition home or self-care (01) ==
LOC: WHH 09:00
PROVIDERS: ATTEND Surgery
DX: S41.101A Unspecified open wound of right upper arm, initial encounter (principal); S71.101A Unspecified open wound, right thigh, initial encounter; I83.92 Asymptomatic varicose veins of left lower extremity; E11.22 Type 2 diabetes mellitus with diabetic chronic kidney disease; I13.0 Hypertensive heart and chronic kidney disease with heart failure and stage 1 through stage 4 chronic kidney disease, or unspecified chronic kidney disease; I50.9 Heart failure, unspecified; N18.3 Chronic kidney disease, stage 3 (moderate); E11.51 Type 2 diabetes mellitus with diabetic peripheral angiopathy without gangrene; I87.2 Venous insufficiency (chronic) (peripheral); I48.91 Unspecified atrial fibrillation; I25.10 Atherosclerotic heart disease of native coronary artery without angina pectoris; K21.9 Gastro-esophageal reflux disease without esophagitis; E78.5 Hyperlipidemia, unspecified; E03.9 Hypothyroidism, unspecified; R18.8 Other ascites; K74.60 Unspecified cirrhosis of liver; M19.90 Unspecified osteoarthritis, unspecified site; Z90.49 Acquired absence of other specified parts of digestive tract; Z79.01 Long term (current) use of anticoagulants; Z79.899 Other long term (current) drug therapy; Z98.890 Other specified postprocedural states; Z98.42 Cataract extraction status, left eye; Z98.41 Cataract extraction status, right eye; Z79.4 Long term (current) use of insulin; W19.XXXA Unspecified fall, initial encounter; Y93.89 Activity, other specified; Y92.89 Other specified places as the place of occurrence of the external cause; Y99.8 Other external cause status
CPT/HCPCS: A6021; G0463; J3490

== ENCOUNTER → 2018-12-20 | Outpatient (CLI) | payer OTHER ==
[~2018-12-20] MED LIST changes: -LIDOCAINE/PRILOCAINE CREAM 5GM TUBE TP ONE
[2018-12-20 14:01] VITALS: BP 158/60
== END | disposition home or self-care (01) ==
LOC: WHH 09:00
PROVIDERS: ATTEND Surgery
DX: S41.101D Unspecified open wound of right upper arm, subsequent encounter (principal); S71.101D Unspecified open wound, right thigh, subsequent encounter; S41.112A Laceration without foreign body of left upper arm, initial encounter; I83.92 Asymptomatic varicose veins of left lower extremity; E11.22 Type 2 diabetes mellitus with diabetic chronic kidney disease; I13.0 Hypertensive heart and chronic kidney disease with heart failure and stage 1 through stage 4 chronic kidney disease, or unspecified chronic kidney disease; I50.9 Heart failure, unspecified; N18.3 Chronic kidney disease, stage 3 (moderate); E11.51 Type 2 diabetes mellitus with diabetic peripheral angiopathy without gangrene; I87.2 Venous insufficiency (chronic) (peripheral); I25.10 Atherosclerotic heart disease of native coronary artery without angina pectoris; I48.91 Unspecified atrial fibrillation; K21.9 Gastro-esophageal reflux disease without esophagitis; E78.5 Hyperlipidemia, unspecified; E03.9 Hypothyroidism, unspecified; K74.60 Unspecified cirrhosis of liver; M19.90 Unspecified osteoarthritis, unspecified site; Z79.01 Long term (current) use of anticoagulants; Z90.49 Acquired absence of other specified parts of digestive tract; Z79.899 Other long term (current) drug therapy; Z98.890 Other specified postprocedural states; Z98.42 Cataract extraction status, left eye; Z98.41 Cataract extraction status, right eye; W19.XXXA Unspecified fall, initial encounter; Y93.89 Activity, other specified; Y92.89 Other specified places as the place of occurrence of the external cause; Y99.8 Other external cause status
CPT/HCPCS: 97597; 97598; A6021

== ENCOUNTER → 2018-12-27 | Outpatient (CLI) | payer OTHER ==
[~2018-12-27] MED LIST changes: +LIDOCAINE/PRILOCAINE CREAM 5GM TUBE TP ONE
[2018-12-27 12:55] VITALS: BP 166/95
== END | disposition home or self-care (01) ==
LOC: WHH 09:00
PROVIDERS: ATTEND Surgery
DX: E11.622 Type 2 diabetes mellitus with other skin ulcer (principal); L97.521 Non-pressure chronic ulcer of other part of left foot limited to breakdown of skin; I83.028 Varicose veins of left lower extremity with ulcer other part of lower leg; S41.101D Unspecified open wound of right upper arm, subsequent encounter; S71.101D Unspecified open wound, right thigh, subsequent encounter; S41.112D Laceration without foreign body of left upper arm, subsequent encounter; E11.22 Type 2 diabetes mellitus with diabetic chronic kidney disease; I13.0 Hypertensive heart and chronic kidney disease with heart failure and stage 1 through stage 4 chronic kidney disease, or unspecified chronic kidney disease; I50.9 Heart failure, unspecified; N18.3 Chronic kidney disease, stage 3 (moderate); E11.51 Type 2 diabetes mellitus with diabetic peripheral angiopathy without gangrene; I87.2 Venous insufficiency (chronic) (peripheral); I25.10 Atherosclerotic heart disease of native coronary artery without angina pectoris; I48.91 Unspecified atrial fibrillation; K21.9 Gastro-esophageal reflux disease without esophagitis; E78.5 Hyperlipidemia, unspecified; E03.9 Hypothyroidism, unspecified; K74.60 Unspecified cirrhosis of liver; M19.90 Unspecified osteoarthritis, unspecified site; Z90.49 Acquired absence of other specified parts of digestive tract; Z79.01 Long term (current) use of anticoagulants; Z79.899 Other long term (current) drug therapy; Z98.890 Other specified postprocedural states; Z98.42 Cataract extraction status, left eye; Z98.41 Cataract extraction status, right eye; X58.XXXD Exposure to other specified factors, subsequent encounter
CPT/HCPCS: 11042; A6022; J3490

== ENCOUNTER → 2019-01-02 | Outpatient (CLI) | payer OTHER ==
[2019-01-02 17:44] VITALS: BP 123/54
== END | disposition home or self-care (01) ==
LOC: WHH 13:45
PROVIDERS: ATTEND Surgery
DX: S41.112D Laceration without foreign body of left upper arm, subsequent encounter (principal); I87.302 Chronic venous hypertension (idiopathic) without complications of left lower extremity; E11.51 Type 2 diabetes mellitus with diabetic peripheral angiopathy without gangrene; E11.22 Type 2 diabetes mellitus with diabetic chronic kidney disease; I48.91 Unspecified atrial fibrillation; I13.0 Hypertensive heart and chronic kidney disease with heart failure and stage 1 through stage 4 chronic kidney disease, or unspecified chronic kidney disease; N18.3 Chronic kidney disease, stage 3 (moderate); I50.9 Heart failure, unspecified; I87.2 Venous insufficiency (chronic) (peripheral); I25.10 Atherosclerotic heart disease of native coronary artery without angina pectoris; K21.9 Gastro-esophageal reflux disease without esophagitis; K74.60 Unspecified cirrhosis of liver; E78.5 Hyperlipidemia, unspecified; E03.9 Hypothyroidism, unspecified; Z79.4 Long term (current) use of insulin; Z95.1 Presence of aortocoronary bypass graft; Z79.01 Long term (current) use of anticoagulants; Z79.899 Other long term (current) drug therapy; Z90.49 Acquired absence of other specified parts of digestive tract; Z98.42 Cataract extraction status, left eye; Z98.41 Cataract extraction status, right eye; Z98.890 Other specified postprocedural states; X58.XXXD Exposure to other specified factors, subsequent encounter
CPT/HCPCS: 11042; A6021; J3490

== ENCOUNTER 2019-01-10 08:35 | Outpatient (CLI) | payer OTHER ==
[~2019-01-10 08:35] MED LIST changes: -LIDOCAINE/PRILOCAINE CREAM 5GM TUBE TP ONE
[2019-01-10 12:22] VITALS: BP 121/60
== END 2019-01-10 14:05 | disposition home or self-care (01) ==
LOC: WHH 08:35
PROVIDERS: ATTEND Surgery
DX: E11.622 Type 2 diabetes mellitus with other skin ulcer (principal); I87.312 Chronic venous hypertension (idiopathic) with ulcer of left lower extremity; L97.821 Non-pressure chronic ulcer of other part of left lower leg limited to breakdown of skin; I10 Essential (primary) hypertension; I48.91 Unspecified atrial fibrillation; E11.22 Type 2 diabetes mellitus with diabetic chronic kidney disease; I13.0 Hypertensive heart and chronic kidney disease with heart failure and stage 1 through stage 4 chronic kidney disease, or unspecified chronic kidney disease; N18.3 Chronic kidney disease, stage 3 (moderate); I50.9 Heart failure, unspecified; E11.51 Type 2 diabetes mellitus with diabetic peripheral angiopathy without gangrene; I87.2 Venous insufficiency (chronic) (peripheral); K21.9 Gastro-esophageal reflux disease without esophagitis; K74.60 Unspecified cirrhosis of liver; E78.5 Hyperlipidemia, unspecified; E03.9 Hypothyroidism, unspecified; M19.90 Unspecified osteoarthritis, unspecified site; Z90.49 Acquired absence of other specified parts of digestive tract; Z98.42 Cataract extraction status, left eye; Z98.41 Cataract extraction status, right eye; Z79.01 Long term (current) use of anticoagulants; Z79.4 Long term (current) use of insulin; Z79.899 Other long term (current) drug therapy; Z95.1 Presence of aortocoronary bypass graft; Z98.890 Other specified postprocedural states
CPT/HCPCS: G0463